=== PATIENT | female | born 1965 | race Caucasian/White ===

== ENCOUNTER 2020-07-30 12:17 | Outpatient (REF) | payer OTHER, SELFPAY ==
--- NOTE | 2020-07-30 | MM_ITS ---
EXAMINATION: BONE DENSITOMETRY CLINICAL INDICATION: Other specified disorders of bone density and structure. COMPARISON: This is the patient's baseline examination. TECHNIQUE: Using a Blued DXA System (software version: 13.1) manufactured by [employer], dual-energy x-ray absorptiometry was performed of the lumbar spine and left hip. The images are of good technical quality. Summary results are attached. FINDINGS: AP SPINE L1-L4: BMD 0.617 g/cm2, Z-score -4.3, T-score -4.7, osteoporosis. LEFT FEMUR, NECK: BMD 0.827 g/cm2, Z-score -0.8, T-score -1.5, osteopenia. LEFT FEMUR, TOTAL: BMD 0.839 g/cm2, Z-score -0.9, T-score -1.3, osteopenia. IDENTIFIED RISK FACTORS: Early menopause, secondary osteoporosis, hysterectomy, bilateral oophorectomy. HISTORY OF FRACTURE: None listed. MEDICATIONS: Calcium supplements or multivitamin, vitamin D. MM/XR DEXA axial skeleton IMPRESSION: 1. DIAGNOSIS: Osteoporosis based on the lowest T-score value of -4.7 in the lumbar spine applying World Health Organization criteria. 2. 10-YEAR FRACTURE RISK PREDICTION, FRAX: Major osteoporotic fracture (clinical spine, forearm, hip or shoulder) 3.1%. Hip fracture 0.2%. 3. Treatment Recommendations: NOF guidelines recommend consideration for treatment in postmenopausal women and men age 50 and older presenting with the following: -A hip or vertebral (clinical or morphometric) fracture. -T-score less than or equal to -2.5 at the femoral neck or spine after appropriate evaluation to exclude secondary causes. -Low bone mass at the hip or spine and a 10-year fracture probability by FRAX of greater than or equal to 3% for hip fracture or greater than or equal to 20% for major osteoporotic fracture based on the [place] adapted WHO algorithm. 4. Other Recommendations: All treatment decisions require clinical judgment and consideration of individual patient factors, including patient preferences, comorbidities, previous drug use, risk factors not captured in the FRAX model (e.g. frailty, falls, vitamin D deficiency, increased bone turnover, interval significant decline in bone density) and possible under or overestimation of fracture risk by FRAX. Additional medical evaluation for secondary cause of low bone mineral density may be appropriate. FUTURE SCAN RECOMMENDATION: People with diagnosed cases of osteoporosis or at high risk for fracture should have regular bone mineral density tests. For patients eligible for Medicare, routine testing is allowed once every 2 years. The testing frequency can be increased to one year for patients who have rapidly progressing disease, those who are receiving or discontinuing medical therapy to restore bone mass, or have additional risk factors.
--- NOTE | 2020-07-30 | MM_ITS ---
EXAMINATION: MM SCREENING DIGITAL BREAST TOMOSYNTHESIS, BILATERAL CLINICAL INFORMATION: Screening. Asymptomatic. The lifetime risk of breast cancer based on the Tyrer-Cuzick Model is 8%. COMPARISON: Mammography: 06/20/2019 TECHNIQUE: Digital breast tomosynthesis is performed in both the craniocaudal and mediolateral oblique views along with computer-aided detection (CAD). Synthesized 2D images are generated from the tomosynthesis. FINDINGS: The breasts are heterogeneously dense, which may obscure small masses (ACR BI-RADS breast composition Category c). There are no significant masses, abnormal calcifications, or other abnormalities. Parenchymal pattern is similar to prior exam. The axilla and skin contours are unremarkable. MM/MM tomosynthesis screening BI IMPRESSION: There are no significant changes from prior study. ASSESSMENT: BI-RADS 1: Negative RECOMMENDATION: Routine annual mammography screening. This patient's information was entered into a reminder system with a target due date for their next mammogram.
== END 2020-07-30 12:18 | disposition home or self-care (01) ==
LOC: HO.MAMMO 12:17
PROVIDERS: Visit Provider Internal Medicine
DX: M85.80 Other specified disorders of bone density and structure, unspecified site (principal); Z12.39 Encounter for other screening for malignant neoplasm of breast
CPT/HCPCS: 77063; 77067; 77080

== ENCOUNTER 2020-08-27 09:31 | Day surgery (SDC) | payer OTHER, SELFPAY ==
[2020-08-21 20:21] VITALS: BMI 26.9
--- NOTE | 2020-08-24 08:53 | HO.ANESPROP2 ---
Documented by User: Letty Espinoza 08/24/20 08:54 HPI - Anesthesia Eval Consult details Narrative: 54yo F for Colonoscopy [facility] Past Medical History Medical History Age related osteoporosis Constipation Hypercholesteremia Irritable bladder Lumbar pain Numbness of left hand Other specified hypothyroidism Family History Family History Father Myocardial infarction Mother CVD (cardiovascular disease) Surgical History Surgical History History of appendectomy History of hysterectomy History of nasal surgery Hx of breast reduction, elective No pertinent past surgical history Social History Social History Smoking Status: Never smoker Use of substances other than those prescribed or required for medical reasons: No Advance Directives: No Advance Directives Information Provided: No Advance Directives on File: No Meds Allergies Allergy/AdvReac Type Severity Reaction Status Date / Time fluconazole [From DIFLUCAN] Allergy Severe ANGIOEDEMA Verified 08/06/20 09:57 acetaminophen [Fioricet] Allergy Unknown Unknown Verified 08/06/20 09:57 butalbital [Fioricet] Allergy Unknown Unknown Verified 08/06/20 09:57 caffeine [Fioricet] Allergy Unknown Unknown Verified 08/06/20 09:57 ciprofloxacin [Cipro] Allergy Unknown Unknown Verified 08/06/20 09:57 sulfamethoxazole Allergy Unknown Unknown Verified 08/06/20 09:57 Exam Exam Date and Time: August 24, 2020 0853 Height,Weight and Vital Signs: Height 5 ft 4 in Weight 71.214 kg Assessment and Plan Assessment Anesthesia Assessment: Chart Reviewed Documented by User: Marleny Smith 08/27/20 11:17 [facility] Past Medical History Medical History Age related osteoporosis Constipation Hypercholesteremia Irritable bladder Lumbar pain Numbness of left hand Other specified hypothyroidism Family History Family History Father Myocardial infarction Mother CVD (cardiovascular disease) Family history of problems with anesthesia: No Surgical History Surgical History History of appendectomy History of hysterectomy History of nasal surgery Hx of breast reduction, elective No pertinent past surgical history History of Problems with Anesthesia: No Social History Social History Smoking Status: Never smoker Use of substances other than those prescribed or required for medical reasons: No Advance Directives: No Advance Directives Information Provided: No Advance Directives on File: No Meds Allergies Allergy/AdvReac Type Severity Reaction Status Date / Time fluconazole [From DIFLUCAN] Allergy Severe ANGIOEDEMA Verified 08/06/20 09:57 acetaminophen [Fioricet] Allergy Unknown Unknown Verified 08/06/20 09:57 butalbital [Fioricet] Allergy Unknown Unknown Verified 08/06/20 09:57 caffeine [Fioricet] Allergy Unknown Unknown Verified 08/06/20 09:57 ciprofloxacin [Cipro] Allergy Unknown Unknown Verified 08/06/20 09:57 sulfamethoxazole Allergy Unknown Unknown Verified 08/06/20 09:57 Exam Height,Weight and Vital Signs: Vital Signs Temp Pulse Resp BP Pulse Ox 08/27/20 10:45 97.7 F 87 16 143/90 H 96 Airway Mallampati Class: II TM Dist: >3cm Neck ROM: Full Partial: Lower Heart: RRR Lungs: CTAB Assessment and Plan Assessment Anesthesia Assessment: Anesthesia Plan Discussed and Chart Reviewed Final Anesthetic Review NPO: Yes ASA Class: II Final Preanesthetic Review: No Changes in Pt Med Stat, Meds/Allgs Chart Reviewed, Consent Obtained/Reviewed and Anes Risks/Benef Reviewed Patient Risk: Low Procedure Risk: Low Anesthetic Plan Anesthetic Plan: MAC: Disposition: Standard PACU
[2020-08-27 10:45] VITALS: BP 143/90; PULSE 87; RESP 16; TEMP 36.5; O2SAT 96
[2020-08-27] MEDS: Lactated Ringers 1,000 ML 100 ML IVCONT (11:01)
--- NOTE | 2020-08-27 11:20 | P.HPSUR_ITS ---
Pre-Procedural Eval Section A The patient is an INPATIENT: No The History & Physical has been completed within 30 days and I have reviewed it.: No Section B Chief Complaint: SCREENING Details of Present Illness: This is her first colonoscopy. She suffers constpation for many years. She was taking magnesium tablets, she is now drinking a tea that is likely senna based and eats a lot of fiber. She is happy with this. She denies any upper GI problems. She does suffer a great deal of gas bloating and trapping. I suggest simethicone. There is no prior problem with anesthesia or sedation. She denies any cardiac or respiratory problems. Her father may have a colon cancer, this is currently being investigated in his older years at age 76. Relevant Family History (Specify if Yes): Yes Relevant Social History: None Present Medications: see Cornlea Stay [facility] assessment Medical History: Significant History (High cholesterol) History of Previous Operations: Relevant previous surgery/procedure and date(s) (hysterectomy, breast reduction ) Allergies: Allergies Allergy/AdvReac Type Severity Reaction Status Date / Time fluconazole [From DIFLUCAN] Allergy Severe ANGIOEDEMA Verified 08/06/20 09:57 acetaminophen [Fioricet] Allergy Unknown Unknown Verified 08/06/20 09:57 butalbital [Fioricet] Allergy Unknown Unknown Verified 08/06/20 09:57 caffeine [Fioricet] Allergy Unknown Unknown Verified 08/06/20 09:57 ciprofloxacin [Cipro] Allergy Unknown Unknown Verified 08/06/20 09:57 sulfamethoxazole Allergy Unknown Unknown Verified 08/06/20 09:57 Review of Systems Sugical H&P ROS: Negative: Constitution, Cardiovascular, Respiratory and Gastrointestinal Exam Surgical H&P Exam: Normal: Heart, Normal: Lungs, Normal: Extremities and Normal: Abdomen Plan Diagnosis/Plan: Unchanged Patient has been examined and remains a candidate for the planned procedure
--- NOTE | 2020-08-27 11:20 | W.PM.OPN ---
Operative Note Operative Note Date of Service: 08/27/20 Narrative: Pre-op diagnosis: Colon cancer screening, chronic constipation, abdominal bloating Post-op diagnosis: other (cecal nodule, diverticulosis, hemorrhoids) Procedure: COLONOSCOPY TILL CECUM WITH BIOPSIES Consent: Indications for the procedure and potential complications of bleeding, perforation, reaction to medications and missed diagnosis were discussed with the patient and informed consent was obtained. Instrument: Olympus PCF H 190 L variable stiffness pediatric colonoscope Monitoring: Vital signs and clinical assessment, intermittent blood pressure monitoring, continuous EKG monitoring, Pulse oximetry and Carbon Dioxide monitoring were done throughout the procedure. Colon withdrawl time was 11 minutes. Procedure: The patient was placed in the left lateral decubitis position and pre-procedure medications were administered. After a digital rectal examination of the ano-rectum, the video colonoscope was inserted into the rectum and advanced through the colon to the cecum. The colonoscope was slowly withdrawn in a retrograde panoramic fashion and the colon mucosa was carefully examined including a retroflexed view of the rectum. Findings and interventions are described below. Procedure Difficulty: Without difficulty Findings: Terminal Ileum: Not evaluated Cecum: A 2 cms elongated benign appearing nodule at appendicular orifice with normal overlying mucosa - biopsies obtained. Ascending Colon: Patchy erythem - random biopsies were obtained Transverse Colon: Normal Descending Colon: Normal Sigmoid Colon: Moderate diverticulosis Rectum: Normal Ano-rectum: Moderate inflammed internal hemorrhoids and hypertrophied anal papillae Colon preparation: Excellent Impression and Post Procedure Diagnosis: Colonoscopy Findings: No polyps were detected. A 2 cms elongated benign appearing nodule at appendicular orifice with normal overlying mucosa (likely inverted appendicular stump) - biopsies obtained. Moderate diverticulosis seen in the sigmoid colon Moderate hemorrhoids on retroflexed exam. Plan: Await pathology results Patient has an appointment on 09/10/20 in the GI Clinic with Nydia Tuttle NP . Repeat Colonoscopy interval based on path results - in 5 years if colon biopsies are normal and due to positive FH of colon cancer. Above findings were reviewed with the patient and diverticulosis and hemorrhoids handouts were given in the discharge area Surgeon: Radha Carlson MD Anesthesia: MAC (Dr Smith) Estimated blood loss (mL): 0 Pathology: other (A. cecal nodule, B. random colon biopsies) Condition: stable Disposition: PACU
[2020-08-27 12:00] VITALS: BP 111/73; PULSE 88; RESP 16; TEMP 36.6; O2SAT 99
[2020-08-27 12:15] VITALS: BP 127/86; PULSE 76; RESP 18; O2SAT 99
--- NOTE | 2020-08-27 12:33 | HO.POSTANES ---
Post Anesthesia Evaluation Post Anesthesia Evaluation Vital Signs: Vital Signs Temp Pulse Resp BP Pulse Ox 08/27/20 12:15 76 18 127/86 99 08/27/20 12:00 97.8 F 88 16 111/73 99 08/27/20 10:45 97.7 F 87 16 143/90 H 96 Anesthesia: Monitored Mental Status: Awake Pain Control: Satisfactory Nausea/Vomiting: None Hydration: Adequate Anesthesia-Related Issues: No Anes. Related Issues
== END 2020-08-27 12:52 | disposition home or self-care (01) ==
PROVIDERS: PCP Internal Medicine; Visit Provider Internal Medicine Gastroenterology
PROC: 0DJD8ZZ Inspection of Lower Intestinal Tract, Via Natural or Artificial Opening Endoscopic (ICD-10-PCS; CPT 45378; principal; 2020-08-27 10:40)
DX: Z12.11 Encounter for screening for malignant neoplasm of colon (principal); K52.832 Lymphocytic colitis; K57.30 Diverticulosis of large intestine without perforation or abscess without bleeding; K64.8 Other hemorrhoids; K62.89 Other specified diseases of anus and rectum; Z88.8 Allergy status to other drugs, medicaments and biological substances
CPT/HCPCS: 45380; 88305

== ENCOUNTER → 2020-09-10 10:07 | Outpatient (BNVA) | payer OTHER, SELFPAY | PROVIDERS: PCP Internal Medicine; Visit Provider Nurse Practitioner | DX: Z76.89 Persons encountering health services in other specified circumstances (principal) ==

== ENCOUNTER → 2020-10-15 10:31 | Outpatient (BNVA) | payer OTHER, SELFPAY | PROVIDERS: PCP Internal Medicine; Visit Provider Internal Medicine ==

== ENCOUNTER 2020-10-29 11:14 | Outpatient (REF) | payer OTHER, SELFPAY ==
[2020-10-29 14:28] LABS: Albumin Level 4.5 g/dL (3.5-5.0); Calcium 9.8 mg/dL (8.4-10.2); Phosphorus 3.8 mg/dL (2.7-4.5)
[2020-10-29 14:47] LABS: Free T4 (Free Thyroxine) 1.11 ng/dL (0.71-1.85); Thyroid Stimulating Hormone 1.76 uIU/mL (0.32-4.0); Vitamin D 25-OH Total 45.9 ng/mL (>30)
[2020-10-30 09:53] LABS: Calcium (PTHI) 9.8 mg/dL (8.6-10.4); PTHI 61 pg/mL (14-64)
[2020-10-30 17:48] LABS: Calcium, Ionized 5.2 mg/dL (4.8-5.6)
[2020-11-01 11:12] LABS: Prot Elec - Albumin 4.3 g/dL (3.8-4.8); Prot Elec - Alpha1 0.3 g/dL (0.2-0.3); Prot Elec - Alpha2 0.8 g/dL (0.5-0.9); Prot Elec - Beta 1 0.5 g/dL (0.4-0.6); Prot Elec - Beta 2 0.4 g/dL (0.2-0.5); Prot Elec - Gamma 1.2 g/dL (0.8-1.7); Prot Elec - Total Protein 7.4 g/dL (6.1-8.1)
[2020-11-01 15:36] LABS: Alkaline Phosphatase Bone 19.1 mcg/L (5.6-29.0)
== END 2020-10-29 11:15 | disposition home or self-care (01) ==
LOC: HO.HMGCLDS 11:14
PROVIDERS: PCP Internal Medicine; Visit Provider Internal Medicine
DX: M81.0 Age-related osteoporosis without current pathological fracture (principal); E55.9 Vitamin D deficiency, unspecified
CPT/HCPCS: 36415; 82040; 82306; 82310; 82330; 83970; 84075; 84100; 84155; 84165; 84439; 84443

== ENCOUNTER 2020-12-11 | Outpatient (REF) | payer OTHER, SELFPAY ==
[2020-12-11 12:55] LABS: Creatinine, mg/dL 59.89
[2020-12-11 14:23] LABS: Creatinine, 24Hr Urine 1.2 G/Day (1.0-2.0); Total Volume 24 Hour Urine 1975 mL
[2020-12-15 21:36] LABS: Calcium, 24 Hr Urine 318 mg/24 h; Calcium/Creatinine Ratio 252 mg/g creat (30-275); Creatinine 24Hr Urine 1.26 g/24 h (0.50-2.15)
== END 2020-12-11 00:01 | disposition home or self-care (01) ==
LOC: HO.HMGCLNP
PROVIDERS: Visit Provider Internal Medicine
DX: M81.0 Age-related osteoporosis without current pathological fracture (principal)
CPT/HCPCS: 82340; 82570

== ENCOUNTER → 2020-12-31 09:24 | Outpatient (BNVA) | payer OTHER, SELFPAY | PROVIDERS: PCP Internal Medicine; Visit Provider Internal Medicine ==

== ENCOUNTER 2021-02-19 10:33 | Outpatient (REF) | payer OTHER, SELFPAY ==
[2021-02-19 14:48] LABS: Alanine Aminotransferase 24 U/L (0-31); Albumin Level 4.4 g/dL (3.5-5.0); Alkaline Phosphatase 91 U/L (39-117); Anion Gap 14 (12-20); Aspartate Amino Transferase 21 U/L (5-31); Bilirubin Total 0.4 mg/dL (0.0-1.0); Blood Urea Nitrogen 11 mg/dL (9-16); Calcium 9.7 mg/dL (8.4-10.2); Carbon Dioxide 27 mmol/L (22-29); Chloride 105 mmol/L (96-108); Estimated Glomerular Filt Rate > 60; Glucose Random 92 mg/dL (60-115); Phosphorus 3.4 mg/dL (2.7-4.5); Potassium 3.7 mmol/L (3.3-5.1); Sodium 142 mmol/L (135-145); Total Protein 7.1 g/dL (6.5-8.0)
[2021-02-19 15:05] LABS: Vitamin D 25-OH Total 35.2 ng/mL (>30)
[2021-02-19 15:10] LABS: TSH reflex Free T4 1.29 uIU/mL (0.32-4.0)
[2021-02-21 09:21] LABS: Calcium (PTHI) 9.8 mg/dL (8.6-10.4); PTHI 43 pg/mL (14-64)
[2021-02-27 06:21] LABS: N-Telopeptide 66 (see note); NTXCreaRU 163 mg/dL (20-275)
== END 2021-02-19 10:34 | disposition home or self-care (01) ==
LOC: HO.HMGCLDS 10:33
PROVIDERS: PCP Internal Medicine; Visit Provider Internal Medicine
DX: E03.8 Other specified hypothyroidism (principal); N32.9 Bladder disorder, unspecified; E78.9 Disorder of lipoprotein metabolism, unspecified; M81.0 Age-related osteoporosis without current pathological fracture; E55.9 Vitamin D deficiency, unspecified; Z91.09 Other allergy status, other than to drugs and biological substances
CPT/HCPCS: 36415; 80053; 82306; 82523; 83970; 84100; 84443

== ENCOUNTER → 2021-02-25 10:31 | Outpatient (BNVA) | payer OTHER, SELFPAY | PROVIDERS: PCP Internal Medicine; Visit Provider Internal Medicine ==

== ENCOUNTER 2021-04-29 15:09 | Outpatient (REF) | payer OTHER, SELFPAY ==
[2021-04-29 17:34] LABS: Creatinine, mg/dL 90.49
[2021-04-29 22:06] LABS: Creatinine, 24Hr Urine 0.9 G/Day (1.0-2.0); Total Volume 24 Hour Urine 1000 mL
[2021-05-01 16:17] LABS: Calcium, 24 Hr Urine 166 mg/24 h; Calcium/Creatinine Ratio 177 mg/g creat (30-275); Creatinine 24Hr Urine 0.94 g/24 h (0.50-2.15)
== END 2021-04-29 15:10 | disposition home or self-care (01) ==
LOC: HO.HMGCLNP 15:09
PROVIDERS: Visit Provider Internal Medicine
DX: M81.0 Age-related osteoporosis without current pathological fracture (principal)
CPT/HCPCS: 82340; 82570

== ENCOUNTER → 2021-05-15 09:32 | Outpatient (BNVA) | payer OTHER, SELFPAY | PROVIDERS: Visit Provider Internal Medicine ==

== ENCOUNTER 2021-09-04 09:24 | Outpatient (REF) | payer OTHER, SELFPAY ==
[2021-09-04 11:30] LABS: MANUAL DIFF FLAG NO
[2021-09-04 11:37] LABS: Appearance Urine CLEAR; Color Urine YELLOW; Glucose Urine UA NEG (NEG); Leukocyte Esterase Urine NEG (NEG); Nitrite Urine NEG (NEG); Specific Gravity - Urine 1.025 (1.005-1.025); UACC Culture Trigger NO; Urine Blood TRACE (NEG); Urine Ketones NEG (NEG); Urine Protein NEG (NEG-TRACE)
[2021-09-04 11:44] LABS: Basophils Percent Auto 0.6 % (0-2); Eosinophils Absolute Auto 0.1 X10*3/uL (0.0-0.4); Eosinophils Percent Auto 1.2 % (0-4); Hematocrit 39.8 % (37.0-47.0); Hemoglobin 13.1 g/dl (12.0-16.0); Imm Gran Abs Auto 0.02 X10*3/uL (0.00-0.03); Imm Gran Pct Auto 0.3 % (0.0-0.4); Lymphocytes Absolute Auto 2.2 X10*3/uL (1.2-4.9); Lymphocytes Percent Auto 32.2 % (20-40); Mean Corpuscular HGB Conc 32.9 g/dl (31.0-35.0); Mean Corpuscular Hemoglobin 29.8 pg (27.0-33.0); Mean Corpuscular Volume 90.5 fL (80.0-98.0); Mean Platelet Volume 10.7 fL (9.4-12.3); Monocytes Absolute Auto 0.4 X10*3/uL (0.1-1.2); Monocytes Percent Auto 5.6 % (2-11); Neutrophils Absolute Auto 4.1 x10*3/uL (2.0-8.3); Neutrophils Percent Auto 60.1 % (45-73); Platelet Count 307 X10*3/uL (160-400); Red Cell Distribution Width 13.4 % (11.0-16.0); White Blood Count 6.8 X10*3/uL (4.8-10.8)
[2021-09-04 12:09] LABS: Renal Epithelial Cells Urine 1+ /LPF; Squamous Epithelial Cell Urine TRACE /LPF
[2021-09-04 12:10] LABS: RBC Urine 0-2 /HPF (0); WBC Urine 0-2 /HPF (0-4)
[2021-09-04 12:11] LABS: Mucus Urine TRACE /LPF
[2021-09-04 12:15] LABS: Alanine Aminotransferase 15 U/L (0-31); Albumin Level 4.4 g/dL (3.5-5.0); Alkaline Phosphatase 75 U/L (39-117); Anion Gap 12 (12-20); Aspartate Amino Transferase 16 U/L (5-31); Bilirubin Total 0.5 mg/dL (0.0-1.0); Blood Urea Nitrogen 21 mg/dL (9-16); Calcium 9.8 mg/dL (8.4-10.2); Carbon Dioxide 26 mmol/L (22-29); Chloride 106 mmol/L (96-108); Cholesterol 259 mg/dL; Estimated Glomerular Filt Rate > 60; Glucose Fasting 90 mg/dL (60-99); HDL Cholesterol 63 mg/dL; LDL Cholesterol Calculated 173 mg/dl; Sodium 140 mmol/L (135-145); Total Protein 7.2 g/dL (6.5-8.0); Triglycerides 115 mg/dL
[2021-09-04 12:22] LABS: TSH reflex Free T4 0.96 uIU/mL (0.32-4.0)
== END 2021-09-04 09:25 | disposition home or self-care (01) ==
LOC: HO.HMGCLDS 09:24
PROVIDERS: PCP Internal Medicine; Visit Provider Internal Medicine
DX: Z00.01 Encounter for general adult medical examination with abnormal findings (principal); E03.8 Other specified hypothyroidism; E78.9 Disorder of lipoprotein metabolism, unspecified; F41.0 Panic disorder [episodic paroxysmal anxiety]; M81.0 Age-related osteoporosis without current pathological fracture; N32.9 Bladder disorder, unspecified; Z91.09 Other allergy status, other than to drugs and biological substances
CPT/HCPCS: 36415; 80053; 80061; 81001; 84443; 85025

== ENCOUNTER 2021-10-09 09:55 | Outpatient (REF) | payer OTHER, SELFPAY ==
--- NOTE | ~2021-10-09 | MM_ITS ---
EXAMINATION: MM SCREENING DIGITAL BREAST TOMOSYNTHESIS, BILATERAL CLINICAL INFORMATION: Screening. Asymptomatic. The lifetime risk of breast cancer based on the Tyrer-Cuzick Model is 5%. COMPARISON: Mammography: 07/30/2020, 06/20/2019 TECHNIQUE: Digital breast tomosynthesis is performed in both the craniocaudal and mediolateral oblique views along with computer-aided detection (CAD). Synthesized 2D images are generated from the tomosynthesis. FINDINGS: The breasts are heterogeneously dense, which may obscure small masses (ACR BI-RADS breast composition Category c). There are no significant masses, abnormal calcifications, or other abnormalities. There is fine fibronodular pattern with scattered stable asymmetries. No significant changes. No developing density. MM/MM tomosynthesis screening BI IMPRESSION: No mammographic evidence of malignancy. ASSESSMENT: BI-RADS 2: Benign RECOMMENDATION: Routine annual mammography screening. This patient's information was entered into a reminder system with a target due date for their next mammogram.
== END 2021-10-09 09:56 | disposition home or self-care (01) ==
LOC: HO.MAMMO 09:55
PROVIDERS: Visit Provider Internal Medicine
DX: Z12.31 Encounter for screening mammogram for malignant neoplasm of breast (principal)
CPT/HCPCS: 77063; 77067

== ENCOUNTER 2021-10-17 13:22 | Outpatient (REF) | payer OTHER, SELFPAY ==
--- NOTE | 2021-10-17 15:39 | MHC.AU.ANR ---
Adult Audiological Evaluation Date of Visit: 10/17/21 911 Emergency Services Dispatcher Used: [place]- By Phone Reason for Appointment: Audiological evaluation due to concern for decreased hearing. Patient notes that she has had hearing difficulties for many years, which she feels fluctuates. She notes difficulties hearing the TV and when people speak in a whisper. She notes that she previously had her hearing tested ~20+ year ago at an ENT office and was told and she had hearing loss, but hasn't followed up since that time. Does patient feel they have a hearing loss?: Yes If Yes, Which Ear?: Both Ears When Was Hearing Difficulty First Noticed?: Many years ago Hearing Handicap Inventory: HHIE SCORE: 10 Based on HHIE score, patient has: Mild to moderate perceived hearing handicap Ear History: Bothersome Tinnitus/Ringing/Noises in Ears: Both Ears History of occupational noise exposure?: Andrea, 9 years Medical History: Medical History: Thyroid Disease Medical History (Other): Breast reduction, hysterectmy, ilan bullosa (pneumatized cavity), appendicitis Allergies: diflucan, cipro Medication List: Escitalopram, Levothyroxine, simvastatin, Zyrtec, loratadine Otoscopy: Right Ear: Unremarkable Left Ear: Unremarkable Tympanometry: Tympanometry performed due to: Conductive component found in audiometric results Right Ear: Could not maintain seal while performing tympanometry. Would begin to run, get correction through the tracing (appeared it was going to by hypercompliant), and then lose seal. Left Ear: Hypercompliant Middle Ear System (Type Ad) Hearing Evaluation: Transducer(s) Used: Insert Earphones, Bone Conduction Method: Conventional Audiometry Stimuli Used: Pure Tones Right Ear: Description of Hearing: Normal hearing 250-500 Hz, sloping to a mild conductive hearing loss from 5448-0114 Hz, a mid sensorineural hearing loss from 0477-3297 Hz, a moderate hearing loss at 6000 Hz, and a moderately-severe hearing loss at 8000 Hz. Left Ear: Description of Hearing: Normal hearing from 250-2000 Hz, sloping to a mild sensorineural hearing loss 0837-7321 Hz. Speech Recognition Threshold (SRT): Method Used: Not performed at today's visit due to time constraints (patient arrived late for appointment). Word Discrimination: Method Used: Not performed at today's visit due to time constraints (patient arrived late for appointment). Recommendations: Audiological re-evaluation in one year. Referral to Ear, Nose, and Throat is recommended due to conductive hearing loss in the right ear and asymmetric hearing. Diagnosis: Primary Diagnosis: H90.3 Bilateral Sensorineural Hearing Loss Secondary Diagnosis: H69.93 Unspecified Eustachian Tube Dysfunction, Bilateral Services Performed: Services Performed: Pure Tone- Air & Bone (CPT 72919) Tympanometry (CPT 85245) Signature: Provider: Trang Mosley, CCC-A
== END 2021-10-17 13:23 | disposition home or self-care (01) ==
LOC: HO.SH 13:22
PROVIDERS: Visit Provider Internal Medicine
DX: Z01.118 Encounter for examination of ears and hearing with other abnormal findings (principal); H90.3 Sensorineural hearing loss, bilateral; H69.93 Unspecified Eustachian tube disorder, bilateral
CPT/HCPCS: 92553; 92567

== ENCOUNTER → 2021-10-28 09:04 | Outpatient (BNVA) | payer OTHER, SELFPAY | PROVIDERS: PCP Internal Medicine | DX: R35.0 Frequency of micturition (principal) | CPT/HCPCS: 51798; 99202 ==

== ENCOUNTER 2021-11-14 10:57 | Outpatient (REF) | payer OTHER, SELFPAY ==
[2021-11-14 14:04] LABS: Appearance Urine CLEAR; Color Urine YELLOW; Glucose Urine UA NEG (NEG); Leukocyte Esterase Urine NEG (NEG); Nitrite Urine NEG (NEG); PH 5.5 (5.0-8.0); Specific Gravity - Urine 1.025 (1.005-1.025); UACC Culture Trigger NO; Urine Blood 2+ (NEG); Urine Ketones NEG (NEG); Urine Protein NEG (NEG-TRACE)
[2021-11-14 14:08] LABS: Alanine Aminotransferase 21 U/L (0-31); Albumin Level 4.4 g/dL (3.5-5.0); Alkaline Phosphatase 90 U/L (39-117); Anion Gap 13 (12-20); Aspartate Amino Transferase 21 U/L (5-31); Bilirubin Direct 0.2 mg/dL (0.0-0.5); Bilirubin Total 0.6 mg/dL (0.0-1.0); Blood Urea Nitrogen 12 mg/dL (9-16); Calcium 9.7 mg/dL (8.4-10.2); Carbon Dioxide 25 mmol/L (22-29); Chloride 107 mmol/L (96-108); Cholesterol 190 mg/dL; Estimated Glomerular Filt Rate > 60; Glucose Random 91 mg/dL (60-115); HDL Cholesterol 63 mg/dL; LDL Cholesterol Calculated 108 mg/dl; Phosphorus 3.7 mg/dL (2.7-4.5); Potassium 4.1 mmol/L (3.3-5.1); Sodium 141 mmol/L (135-145); Total Protein 7.2 g/dL (6.5-8.0); Triglycerides 99 mg/dL
[2021-11-14 14:10] LABS: TSH reflex Free T4 2.13 uIU/mL (0.32-4.0)
[2021-11-14 14:19] LABS: WBC Urine 0 /HPF (0-4)
[2021-11-14 14:20] LABS: Mucus Urine 2+ /LPF; Squamous Epithelial Cell Urine 2+ /LPF
[2021-11-15 17:16] LABS: Calcium (PTHI) 9.6 mg/dL (8.6-10.4); PTHI 75 pg/mL (14-64)
== END 2021-11-14 10:58 | disposition home or self-care (01) ==
LOC: HO.HMGCLDS 10:57
PROVIDERS: PCP Internal Medicine; Visit Provider Internal Medicine
DX: E03.8 Other specified hypothyroidism (principal); M81.0 Age-related osteoporosis without current pathological fracture; E78.9 Disorder of lipoprotein metabolism, unspecified; E55.9 Vitamin D deficiency, unspecified
CPT/HCPCS: 36415; 80053; 80061; 80076; 81001; 81003; 82248; 82306; 83970; 84100; 84443

== ENCOUNTER → 2021-11-18 11:27 | Outpatient (BNVA) | payer OTHER, SELFPAY | PROVIDERS: Visit Provider Internal Medicine ==

== ENCOUNTER 2021-12-19 12:52 | Outpatient (REF) | payer OTHER, SELFPAY ==
--- NOTE | ~2021-12-19 | US_ITS ---
EXAMINATION: US THYROID CLINICAL INFORMATION: Hyperparathyroidism, unspecified. COMPARISON: None TECHNIQUE: Linear transducer grayscale and color Doppler examination with attention to the region of the thyroid. FINDINGS: SIZE: Measurements of the thyroid lobes and nodules are given in sagittal, anteroposterior and transverse dimensions respectively. Right Thyroid Lobe: 4.12 x 1.87 x 1.41 cm, volume 5.70 mL. Parenchyma: The gland echotexture is heterogeneous. Thyroid vascularity is increased. Left Thyroid Lobe: 4.32 x 1.35 x 1.44 cm, volume 4.41 mL. Parenchyma: The gland echotexture is heterogeneous. Thyroid vascularity is increased. Isthmus: 0.41 cm in maximum AP dimension. No focal thyroid nodule is seen. NODES: No lymphadenopathy is seen in the tissue surrounding the thyroid gland. ADDITIONAL FINDINGS: Posterior to the right thyroid lobe lower pole, a 1.1 x 0.5 x 0.5 cm hypoechoic nodule seen. Posterior to the left thyroid lobe lower pole, a 0.8 x 0.3 x 0.4 cm hypoechoic nodule is seen. US/US thyroid IMPRESSION: 1. Unremarkable thyroid ultrasound examination. 2. Bilateral parathyroid adenomas are questioned. If clinically indicated, this can be correlated clinically with serum parathormone and calcium levels. ACR TI-RADS RECOMMENDATION REFERENCE: Ultrasound-guided fine-needle aspiration, followup ultrasound, no further follow up. * TR1 (0 point) and TR 2 (2 points): No FNA or follow up * TR3 (3 points): FNA if more than or equal to 2.5 cm in maximum dimension, followup ultrasound in 1, 3 and 5 years if 1.5 to 2.4 cm in maximum dimension. * TR4 (4-6 points): FNA if more than or equal to 1.5 cm in maximum dimension, followup ultrasound in 1, 2, 3 and 5 years if 1 to 1.4 cm in maximum dimension. * TR5 (more than or equal to 7 points): FNA if more than or equal to 1 cm in maximum dimension, followup ultrasound every year for 5 years if 0.5 to 0.9 cm in maximum dimension. * TR3, TR4 or TR5 nodules that are below the size threshold for follow up receive no follow up.
== END 2021-12-19 12:53 | disposition home or self-care (01) ==
LOC: HO.HMGCX 12:52
PROVIDERS: Visit Provider Internal Medicine
DX: E21.3 Hyperparathyroidism, unspecified (principal)
CPT/HCPCS: 76536

== ENCOUNTER 2022-01-21 09:35 | Outpatient (REF) | payer OTHER, SELFPAY ==
[2022-01-21 12:01] LABS: Alanine Aminotransferase 17 U/L (0-31); Albumin Level 4.4 g/dL (3.5-5.0); Alkaline Phosphatase 86 U/L (39-117); Anion Gap 12 (12-20); Aspartate Amino Transferase 17 U/L (5-31); Bilirubin Total 0.6 mg/dL (0.0-1.0); Blood Urea Nitrogen 14 mg/dL (9-16); Calcium 9.9 mg/dL (8.4-10.2); Carbon Dioxide 26 mmol/L (22-29); Chloride 106 mmol/L (96-108); Estimated Glomerular Filt Rate > 60; Glucose Random 93 mg/dL (60-115); Phosphorus 3.4 mg/dL (2.7-4.5); Potassium 4.1 mmol/L (3.3-5.1); Sodium 140 mmol/L (135-145); Total Protein 7.4 g/dL (6.5-8.0)
[2022-01-21 12:10] LABS: Vitamin D 25-OH Total 36.6 ng/mL (>30)
[2022-01-22 14:11] LABS: Calcium (PTHI) 9.5 mg/dL (8.6-10.4); PTHI 64 pg/mL (16-77)
== END 2022-01-21 09:36 | disposition home or self-care (01) ==
LOC: HO.HMGCLDS 09:35
PROVIDERS: PCP Internal Medicine; Visit Provider Internal Medicine
DX: E21.3 Hyperparathyroidism, unspecified (principal); E55.9 Vitamin D deficiency, unspecified
CPT/HCPCS: 36415; 80053; 82306; 83970; 84100

== ENCOUNTER → 2022-01-22 08:13 | Outpatient (BNVA) | payer OTHER, SELFPAY | PROVIDERS: PCP Internal Medicine; Visit Provider Internal Medicine | DX: Z13.89 Encounter for screening for other disorder (principal) ==

== ENCOUNTER 2022-01-31 09:10 | Outpatient (REF) | payer OTHER, SELFPAY ==
[2022-01-31 11:31] LABS: Total Volume 24 Hour Urine 1600 mL
[2022-01-31 11:58] LABS: Creatinine, 24Hr Urine 1.1 G/Day (1.0-2.0); Creatinine, mg/dL 70.78
[2022-02-01 16:40] LABS: Calcium, 24 Hr Urine 120 mg/24 h; Calcium/Creatinine Ratio 103 mg/g creat (30-275); Creatinine 24Hr Urine 1.17 g/24 h (0.50-2.15)
== END 2022-01-31 09:11 | disposition home or self-care (01) ==
LOC: HO.HMGCLNP 09:10
PROVIDERS: PCP Internal Medicine; Visit Provider Internal Medicine
DX: M81.0 Age-related osteoporosis without current pathological fracture (principal)
CPT/HCPCS: 82340; 82570

== ENCOUNTER 2022-05-08 10:02 | Outpatient (REF) | payer OTHER, SELFPAY ==
[2022-05-08 11:56] LABS: Alanine Aminotransferase 21 U/L (0-31); Albumin Level 4.4 g/dL (3.5-5.0); Alkaline Phosphatase 74 U/L (39-117); Anion Gap 15 (12-20); Aspartate Amino Transferase 21 U/L (5-31); Bilirubin Total 0.4 mg/dL (0.0-1.0); Blood Urea Nitrogen 12 mg/dL (9-16); Calcium 9.2 mg/dL (8.4-10.2); Carbon Dioxide 23 mmol/L (22-29); Chloride 106 mmol/L (96-108); Cholesterol 263 mg/dL; Estimated Glomerular Filt Rate > 60; Glucose Fasting 96 mg/dL (60-99); HDL Cholesterol 56 mg/dL; LDL Cholesterol Calculated 184 mg/dl; Lactate Dehydrogenase 173 U/L (122-220); Magnesium 2.1 mg/dL (1.6-2.6); Sodium 140 mmol/L (135-145); Total Protein 7.2 g/dL (6.5-8.0); Triglycerides 115 mg/dL
== END 2022-05-08 10:03 | disposition home or self-care (01) ==
LOC: HO.HMGCLDS 10:02
PROVIDERS: PCP Internal Medicine; Visit Provider Internal Medicine
DX: E03.8 Other specified hypothyroidism (principal); F41.0 Panic disorder [episodic paroxysmal anxiety]; E78.9 Disorder of lipoprotein metabolism, unspecified; E55.9 Vitamin D deficiency, unspecified; M81.0 Age-related osteoporosis without current pathological fracture; Z91.09 Other allergy status, other than to drugs and biological substances
CPT/HCPCS: 36415; 80053; 80061; 82550; 83615; 83735; 84443

== ENCOUNTER 2022-07-08 15:42 | Outpatient (REF) | payer OTHER, SELFPAY ==
--- NOTE | ~2022-07-08 | XR_ITS ---
EXAMINATION: XR WRIST, RIGHT CLINICAL INFORMATION: Fall COMPARISON: None TECHNIQUE: PA, lateral, and oblique views of the right wrist. FINDINGS: No fracture or dislocation. Osteopenia. Joint spaces maintained. Mild soft tissue swelling of the wrist. XR/XR wrist RT min 3V IMPRESSION: Mild soft tissue swelling. No fracture or malalignment.
== END 2022-07-08 15:43 | disposition home or self-care (01) ==
LOC: HO.HMGCX 15:42
PROVIDERS: PCP Internal Medicine; Visit Provider Emergency Medicine
DX: Z91.81 History of falling (principal)
CPT/HCPCS: 73110

== ENCOUNTER 2022-09-27 09:29 | Outpatient (REF) | payer OTHER, SELFPAY ==
[2022-09-27 11:28] LABS: Alanine Aminotransferase 16 U/L (0-31); Albumin Level 4.8 g/dL (3.5-5.0); Alkaline Phosphatase 52 U/L (39-117); Anion Gap 14 (12-20); Aspartate Amino Transferase 18 U/L (5-31); Bilirubin Total 0.6 mg/dL (0.0-1.0); Blood Urea Nitrogen 20 mg/dL (9-16); Calcium 9.9 mg/dL (8.4-10.2); Carbon Dioxide 26 mmol/L (22-29); Chloride 106 mmol/L (96-108); Cholesterol 251 mg/dL; Estimated Glomerular Filt Rate > 60; Glucose Fasting 96 mg/dL (60-99); HDL Cholesterol 82 mg/dL; LDL Cholesterol Calculated 152 mg/dl; Phosphorus 3.2 mg/dL (2.7-4.5); Potassium 4.5 mmol/L (3.3-5.1); Sodium 141 mmol/L (135-145); Total Protein 7.5 g/dL (6.5-8.0); Triglycerides 89 mg/dL
[2022-09-27 11:48] LABS: Vitamin D 25-OH Total 36.8 ng/mL (>30)
[2022-09-27 11:49] LABS: TSH reflex Free T4 1.58 uIU/mL (0.32-4.0)
[2022-09-29 15:39] LABS: Calcium (PTHI) 9.6 mg/dL (8.6-10.4); PTHI 79 pg/mL (16-77)
== END 2022-09-27 09:30 | disposition home or self-care (01) ==
LOC: HO.HMGCLDS 09:29
PROVIDERS: Absent Provider Internal Medicine; PCP Internal Medicine; Visit Provider Internal Medicine
DX: E78.9 Disorder of lipoprotein metabolism, unspecified (principal); F33.9 Major depressive disorder, recurrent, unspecified; M81.0 Age-related osteoporosis without current pathological fracture; E55.9 Vitamin D deficiency, unspecified
CPT/HCPCS: 36415; 80053; 80061; 82306; 83970; 84100; 84443

== ENCOUNTER 2022-09-29 08:38 | Outpatient (REF) | payer OTHER, SELFPAY ==
[2022-10-10 00:48] LABS: N-Telopeptide 44 (see note); NTXCreaRU 59 mg/dL (20-275)
== END 2022-09-29 08:39 | disposition home or self-care (01) ==
LOC: HO.HMGCLDS 08:38
PROVIDERS: Visit Provider Internal Medicine
DX: M81.0 Age-related osteoporosis without current pathological fracture (principal)
CPT/HCPCS: 82523

== ENCOUNTER → 2022-09-30 09:15 | Outpatient (BNVA) | payer OTHER, SELFPAY | PROVIDERS: PCP Internal Medicine; Visit Provider Nurse Practitioner Family | DX: Z13.89 Encounter for screening for other disorder (principal) ==

== ENCOUNTER → 2022-10-09 12:17 | Outpatient (BNVA) | payer OTHER, SELFPAY | PROVIDERS: PCP Internal Medicine; Visit Provider Internal Medicine | DX: E21.3 Hyperparathyroidism, unspecified (principal); M81.0 Age-related osteoporosis without current pathological fracture; E78.00 Pure hypercholesterolemia, unspecified; E55.9 Vitamin D deficiency, unspecified; Z82.62 Family history of osteoporosis; Z90.710 Acquired absence of both cervix and uterus; Z79.83 Long term (current) use of bisphosphonates | CPT/HCPCS: 99212 ==

== ENCOUNTER 2022-10-16 09:52 | Outpatient (REF) | payer OTHER, SELFPAY ==
--- NOTE | ~2022-10-16 | MM_ITS ---
EXAMINATION: MM SCREENING DIGITAL BREAST TOMOSYNTHESIS, BILATERAL CLINICAL INFORMATION: Screening. Asymptomatic. Prior history reduction mammoplasty over 15 years ago. The lifetime risk of breast cancer based on the Tyrer-Cuzick Model is 8%. COMPARISON: Mammography: 10/09/2021, 07/30/2020 TECHNIQUE: Digital breast tomosynthesis is performed in both the craniocaudal and mediolateral oblique views along with computer-aided detection (CAD). Synthesized 2D images are generated from the tomosynthesis. FINDINGS: The breasts are heterogeneously dense, which may obscure small masses (ACR BI-RADS breast composition Category c). There is fibronodular parenchymal pattern with scattered parenchymal asymmetries. Neither breast shows abnormal calcifications. The axilla and skin contours are unremarkable. Left breast shows no developing density or interval mass or architectural abnormality. Right breast has some asymmetric densities upper breast on MLO view likely related to summation artifact or incompletely compressed glandular tissue. Patient will be recalled for additional imaging. MM/MM tomosynthesis screening BI IMPRESSION: Right: -Asymmetric densities mid upper right breast on MLO view, suspect summation artifact or incompletely compressed glandular tissue. Left: -No mammographic evidence of malignancy. ASSESSMENT: BI-RADS 0: Incomplete - Need Additional Imaging Evaluation RECOMMENDATION: 1. Additional views of the right breast (spot MLO, spot ML). 2. Targeted ultrasound if warranted after review of the additional views. 3. Radiology department staff will contact the patient for additional imaging. This patient's information was entered into a reminder system with a target due date for their next mammogram.
--- NOTE | ~2022-10-16 | MM_ITS ---
EXAMINATION: BONE DENSITOMETRY CLINICAL INDICATION: Hyperparathyroidism, unspecified. COMPARISON: Baseline BD dated 07/30/2024 of the lumbar spine and left hip. This is the baseline BD of the left forearm radius 33%. TECHNIQUE: Using a [employer] DXA System (software version: 13.1) manufactured by [employer], dual-energy x-ray absorptiometry was performed of the lumbar spine, left hip and left forearm radius 33%. The images are of good technical quality. Summary results are attached. FINDINGS: AP SPINE L1-L4: Current: BMD 0.679 g/cm2, Z-score -3.6, T-score -4.2, osteoporosis, 10.0% increase from baseline (<5% change is not significant). Baseline: BMD 0.617 g/cm2. LEFT FEMUR, NECK: Current: BMD 0.753 g/cm2, Z-score -1.2, T-score -2.0, osteopenia. Baseline: BMD 0.827 g/cm2. LEFT FEMUR, TOTAL: Current: BMD 0.770 g/cm2, Z-score -1.4, T-score -1.9, osteopenia, 8.2% decrease from baseline (<5% change is not significant). Baseline: BMD 0.839 g/cm2. LEFT FOREARM RADIUS 33%: BMD 0.602 g/cm2, Z-score -2.7, T-score -3.1, osteoporosis. Baseline: Not previously measured. IDENTIFIED RISK FACTORS: Osteoporosis. Hyperparathyroidism. Low calcium intake. Parental hip fracture. Secondary osteoporosis (early menopause, hypothyroidism). Hysterectomy. Right oophorectomy. HISTORY OF FRACTURE: Femur/hip. MEDICATIONS: Calcium supplement or multivitamin. Vitamin D. Bisphosphonates. MM/XR DEXA appendicular skeleton IMPRESSION: 1. DIAGNOSIS: Osteoporosis based on the lowest T-score value of -4.2 in the lumbar spine applying World Health Organization criteria. 2. 10-YEAR FRACTURE RISK PREDICTION, FRAX: According to the guidelines, FRAX calculation should only be performed on patients in the osteopenia bone density category. Therefore, FRAX was not performed on this patient.? 3. Treatment Recommendations: NOF guidelines recommend consideration for treatment in postmenopausal women and men age 50 and older presenting with the following: -A hip or vertebral (clinical or morphometric) fracture. -T-score less than or equal to -2.5 at the femoral neck or spine after appropriate evaluation to exclude secondary causes. -Low bone mass at the hip or spine and a 10-year fracture probability by FRAX of greater than or equal to 3% for hip fracture or greater than or equal to 20% for major osteoporotic fracture based on the [place] adapted WHO algorithm. 4. Other Recommendations: All treatment decisions require clinical judgment and consideration of individual patient factors, including patient preferences, comorbidities, previous drug use, risk factors not captured in the FRAX model (e.g. frailty, falls, vitamin D deficiency, increased bone turnover, interval significant decline in bone density) and possible under or overestimation of fracture risk by FRAX. Additional medical evaluation for secondary cause of low bone mineral density may be appropriate. FUTURE SCAN RECOMMENDATION: People with diagnosed cases of osteoporosis or at high risk for fracture should have regular bone mineral density tests. For patients eligible for Medicare, routine testing is allowed once every 2 years. The testing frequency can be increased to one year for patients who have rapidly progressing disease, those who are receiving or discontinuing medical therapy to restore bone mass, or have additional risk factors.
== END 2022-10-16 09:53 | disposition home or self-care (01) ==
LOC: HO.MAMMO 09:52
PROVIDERS: PCP Internal Medicine; Visit Provider Internal Medicine
DX: Z12.31 Encounter for screening mammogram for malignant neoplasm of breast (principal); Z13.820 Encounter for screening for osteoporosis; E21.3 Hyperparathyroidism, unspecified; Z78.0 Asymptomatic menopausal state
CPT/HCPCS: 77063; 77067; 77081

== ENCOUNTER 2022-10-20 | Outpatient (REF) | payer OTHER, SELFPAY ==
[2022-10-21 13:45] LABS: Total Volume 24 Hour Urine 1150 mL
[2022-10-21 13:56] LABS: Creatinine, 24Hr Urine 0.8 G/Day (1.0-2.0)
[2022-10-22 19:48] LABS: Calcium, 24 Hr Urine 136 mg/24 h; Calcium/Creatinine Ratio 164 mg/g creat (30-275); Creatinine 24Hr Urine 0.83 g/24 h (0.50-2.15)
== END 2022-10-20 00:01 | disposition home or self-care (01) ==
LOC: HO.LNP
PROVIDERS: Visit Provider Internal Medicine
DX: E21.3 Hyperparathyroidism, unspecified (principal)
CPT/HCPCS: 82340; 82570

== ENCOUNTER 2022-10-21 08:33 | Outpatient (REF) | payer OTHER, SELFPAY | END 2022-10-21 08:34 | disposition home or self-care (01) | LOC: HO.HMGCLDS 08:33 | PROVIDERS: PCP Internal Medicine; Visit Provider Internal Medicine | DX: Z13.89 Encounter for screening for other disorder (principal) ==

== ENCOUNTER 2022-10-23 09:27 | Outpatient (REF) | payer OTHER, SELFPAY ==
--- NOTE | ~2022-10-23 | US_ITS ---
EXAMINATION: US SOFT TISSUE OF THE NECK CLINICAL INFORMATION: Hyperparathyroidism, assess for parathyroid adenoma. COMPARISON: Ultrasound thyroid 12/19/2021. TECHNIQUE: Linear transducer grayscale and color Doppler examination of the parathyroid area. FINDINGS: Limited imaging through the neck reveals a hypoechoic scanlon shaped lesion anterior to the right thyroid gland measuring 0.70 x 0.31 x 0.38 cm likely a small parathyroid lesion. Imaging through the left parathyroid region reveals no evidence of mass. US/US soft tiss head and/or neck IMPRESSION: Likely small right parathyroid gland. If there is a clinical concern for parathyroid adenoma further evaluation with a parathyroid nuclear scan can be performed.
== END 2022-10-23 09:28 | disposition home or self-care (01) ==
LOC: HO.HMGCX 09:27
PROVIDERS: PCP Internal Medicine; Visit Provider Internal Medicine
DX: E21.3 Hyperparathyroidism, unspecified (principal)
CPT/HCPCS: 76536

== ENCOUNTER 2022-10-30 08:26 | Outpatient (REF) | payer OTHER, SELFPAY ==
--- NOTE | ~2022-10-30 | MM_ITS ---
EXAMINATION: MM DIAGNOSTIC DIGITAL BREAST TOMOSYNTHESIS, RIGHT TARGETED RIGHT BREAST ULTRASOUND CLINICAL INFORMATION: Right breast densities upper outer aspect. COMPARISON: Mammography: 10/16/2022 and studies dating back to 06/20/2019. TECHNIQUE: Digital breast tomosynthesis is performed. 2D images are generated from the tomosynthesis. The following views are obtained: Full-field 90 degree mediolateral view and spot compression mediolateral oblique view. FINDINGS: The breasts are heterogeneously dense, which may obscure small masses (ACR BI-RADS breast composition Category c). Additional views show no significant mass, architectural abnormality, or abnormal calcifications. There remains residual dense breast tissue limiting ability to see discrete lesions. Targeted right breast ultrasound did not demonstrate any abnormal cystic or solid masses. No region of abnormal distal sound shadowing was appreciated. No edematous change within the parenchyma is noted. Results are discussed with the patient at time of visit. MM/MM tomosynthesis added views R IMPRESSION: No mammographic or ultrasound evidence of malignancy. ASSESSMENT: BI-RADS 1: Negative. RECOMMENDATION: Routine annual mammography screening. This patient's information was entered into a reminder system with a target due date for their next mammogram.
== END 2022-10-30 08:27 | disposition home or self-care (01) ==
LOC: HO.MAMMO 08:26
PROVIDERS: PCP Internal Medicine; Visit Provider Internal Medicine
DX: R92.2 Inconclusive mammogram (principal)
CPT/HCPCS: 76642; 77061; 77065

== ENCOUNTER 2022-11-20 12:20 | Outpatient (REF) | payer OTHER, SELFPAY ==
--- NOTE | ~2022-11-20 | US_ITS ---
EXAMINATION: US RETROPERITONEAL LIMITED (RENAL ONLY) CLINICAL INFORMATION: Other microscopic hematuria. COMPARISON: None TECHNIQUE: Real-time imaging of the kidneys. FINDINGS: RIGHT KIDNEY: 10.0 x 4.4 x 5.1 cm (SAG x AP x TRV). The kidney is normal in size, contour, and echogenicity. Renal cortical thickness is normal. No calculi or focal parenchymal lesions. No hydronephrosis. LEFT KIDNEY: 9.7 x 4.9 x 4.8 cm (SAG x AP x TRV). The kidney is normal in size, contour, and echogenicity. Renal cortical thickness is normal. No calculi or focal parenchymal lesions. No hydronephrosis. US/US renal BI IMPRESSION: Unremarkable examination.
== END 2022-11-20 12:21 | disposition home or self-care (01) ==
LOC: HO.HMGCX 12:20
PROVIDERS: PCP Internal Medicine; Visit Provider Nurse Practitioner Family
DX: R31.29 Other microscopic hematuria (principal)
CPT/HCPCS: 76775

== ENCOUNTER → 2022-11-27 12:36 | Outpatient (BNVA) | payer OTHER, SELFPAY | PROVIDERS: PCP Internal Medicine; Visit Provider Internal Medicine | DX: M81.0 Age-related osteoporosis without current pathological fracture (principal); E55.9 Vitamin D deficiency, unspecified; Z79.899 Other long term (current) drug therapy | CPT/HCPCS: 99212 ==

== ENCOUNTER 2022-11-27 13:32 | Outpatient (REF) | payer OTHER, SELFPAY ==
[2022-11-27 17:18] LABS: Alanine Aminotransferase 22 U/L (0-31); Albumin Level 4.5 g/dL (3.5-5.0); Alkaline Phosphatase 56 U/L (39-117); Anion Gap 11 (12-20); Aspartate Amino Transferase 22 U/L (5-31); Bilirubin Total 0.5 mg/dL (0.0-1.0); Blood Urea Nitrogen 17 mg/dL (9-16); Calcium 10.3 mg/dL (8.4-10.2); Carbon Dioxide 32 mmol/L (22-29); Chloride 105 mmol/L (96-108); Estimated Glomerular Filt Rate > 60; Glucose Random 98 mg/dL (60-115); Phosphorus 3.6 mg/dL (2.7-4.5); Potassium 4.3 mmol/L (3.3-5.1); Sodium 144 mmol/L (135-145); Total Protein 6.8 g/dL (6.5-8.0)
[2022-11-27 17:33] LABS: Free T4 (Free Thyroxine) 1.08 ng/dL (0.71-1.85); Thyroid Stimulating Hormone 1.32 uIU/mL (0.32-4.0); Vitamin D 25-OH Total 38.8 ng/mL (>30)
[2022-12-02 14:54] LABS: Calcium (PTHI) 10.5 mg/dL (8.6-10.4); PTHI 67 pg/mL (16-77)
== END 2022-11-27 13:33 | disposition home or self-care (01) ==
LOC: HO.HMGCLDS 13:32
PROVIDERS: PCP Internal Medicine; Visit Provider Internal Medicine
DX: E55.9 Vitamin D deficiency, unspecified (principal); M81.0 Age-related osteoporosis without current pathological fracture
CPT/HCPCS: 36415; 80053; 82306; 83970; 84100; 84439; 84443

== ENCOUNTER 2022-11-29 08:27 | Outpatient (REF) | payer OTHER, SELFPAY ==
[2022-12-05 04:38] LABS: N-Telopeptide 32 (see note); NTXCreaRU 195 mg/dL (20-275)
== END 2022-11-29 08:28 | disposition home or self-care (01) ==
LOC: HO.HMGCLNP 08:27
PROVIDERS: Visit Provider Internal Medicine
DX: M81.0 Age-related osteoporosis without current pathological fracture (principal)
CPT/HCPCS: 82523

== ENCOUNTER → 2022-12-15 12:58 | Outpatient (BNVA) | payer OTHER, SELFPAY | PROVIDERS: PCP Internal Medicine; Visit Provider Internal Medicine | DX: M81.0 Age-related osteoporosis without current pathological fracture (principal); E21.3 Hyperparathyroidism, unspecified; E55.9 Vitamin D deficiency, unspecified | CPT/HCPCS: 99212 ==

== ENCOUNTER 2022-12-25 08:52 | Outpatient (REF) | payer OTHER, SELFPAY ==
[2022-12-26 09:07] LABS: BV Int Neg Control Negative (Negative); BV Int Pos Control Positive (Positive)
== END 2022-12-25 08:53 | disposition home or self-care (01) ==
LOC: HO.LAB 08:52
PROVIDERS: PCP Internal Medicine; Visit Provider Advanced Practice Midwife
DX: Z01.419 Encounter for gynecological examination (general) (routine) without abnormal findings (principal); N89.8 Other specified noninflammatory disorders of vagina; R23.2 Flushing; R68.82 Decreased libido; Z20.2 Contact with and (suspected) exposure to infections with a predominantly sexual mode of transmission
CPT/HCPCS: 87480; 87510; 87660

== ENCOUNTER 2023-02-05 10:06 | Outpatient (REF) | payer OTHER, SELFPAY ==
[2023-02-05 11:59] LABS: Alanine Aminotransferase 26 U/L (0-31); Albumin Level 4.6 g/dL (3.5-5.0); Alkaline Phosphatase 64 U/L (39-117); Anion Gap 11 (12-20); Aspartate Amino Transferase 24 U/L (5-31); Bilirubin Total 0.7 mg/dL (0.0-1.0); Blood Urea Nitrogen 12 mg/dL (9-16); Calcium 10.1 mg/dL (8.4-10.2); Carbon Dioxide 30 mmol/L (22-29); Chloride 105 mmol/L (96-108); Cholesterol 197 mg/dL; Estimated Glomerular Filt Rate > 60; Glucose Fasting 91 mg/dL (60-99); HDL Cholesterol 70 mg/dL; LDL Cholesterol Calculated 101 mg/dl; Potassium 4.2 mmol/L (3.3-5.1); Sodium 142 mmol/L (135-145); Total Protein 7.1 g/dL (6.5-8.0); Triglycerides 131 mg/dL
[2023-02-05 12:18] LABS: TSH reflex Free T4 1.48 uIU/mL (0.32-4.0)
== END 2023-02-05 10:07 | disposition home or self-care (01) ==
LOC: HO.HMGCLDS 10:06
PROVIDERS: Visit Provider Internal Medicine
DX: F33.9 Major depressive disorder, recurrent, unspecified (principal); F41.0 Panic disorder [episodic paroxysmal anxiety]; E78.9 Disorder of lipoprotein metabolism, unspecified; E03.8 Other specified hypothyroidism; M81.0 Age-related osteoporosis without current pathological fracture; Z91.09 Other allergy status, other than to drugs and biological substances
CPT/HCPCS: 36415; 80053; 80061; 84443

== ENCOUNTER 2023-02-10 10:34 | Outpatient (REF) | payer OTHER, SELFPAY ==
--- NOTE | ~2023-02-10 | XR_ITS ---
EXAMINATION: XR CERVICAL SPINE CLINICAL INFORMATION: Neck pain COMPARISON: None available. TECHNIQUE: 3 views of the cervical spine were obtained. FINDINGS: Mild 2 mm anterior subluxation of C4 with respect to C5. Bone alignment is otherwise normal. No fracture or dislocation. Mild degenerative spondylosis at C6-C7. Normal disc spaces. Normal prevertebral soft tissues. XR/XR cervical spine 2V IMPRESSION: Mild degenerative spondylosis at C6-C7.
== END 2023-02-10 10:35 | disposition home or self-care (01) ==
LOC: HO.HMGCX 10:34
PROVIDERS: Visit Provider Internal Medicine
DX: M54.2 Cervicalgia (principal)
CPT/HCPCS: 72040

== ENCOUNTER 2023-07-24 08:42 | Outpatient (AMB) | payer OTHER, SELFPAY ==
[2023-07-24 08:47] VITALS: BP 118/78; PULSE 93; O2SAT 98; BMI 26.7
--- NOTE | 2023-07-24 08:47 | A.OFFPC_ITS ---
Vital Signs 3 07/24/23 08:47 Height 5 ft 4 in Weight 155 lb 6 oz BMI 26.7 BP 118/78 Blood Pressure Location Lt brachial Position Sitting Pulse 93 Pulse Source Pulse Oximeter Pulse Oximetry (%) 98 Oxygen Delivery Method Room Air Intake Visit Reasons: Due 4 month Follow Up~ Allergies fluconazole [From DIFLUCAN] Allergy (Severe, Verified 07/24/23 08:47) ANGIOEDEMA acetaminophen [Fioricet] Allergy (Unknown, Verified 07/24/23 08:47) Unknown butalbital [Fioricet] Allergy (Unknown, Verified 07/24/23 08:47) Unknown caffeine [Fioricet] Allergy (Unknown, Verified 07/24/23 08:47) Unknown ciprofloxacin [Cipro] Allergy (Unknown, Verified 07/24/23 08:47) Unknown sulfamethoxazole Allergy (Unknown, Verified 07/24/23 08:47) Unknown Medication List - Last Reconciled 07/24/23 by Coco Hoover MD apremilast (Otezla) 30 mg PO BID bupropion HCl (Wellbutrin SR) 150 mg PO QAM 90 days fkrqmpo-[id number]-xokz-copper-raúl 325 mg-12.5 mcg -2.75 mg (Citracal-D3 Maximum Plus) 1 tab PO BID 30 days cetirizine (Zyrtec) 10 mg PO DAILY cholecalciferol (vitamin D3) 50 mcg PO DAILY fluticasone propionate 50 mcg/actuation (Allergy Relief (fluticasone)) 1 spray intranasal DAILY 90 days levothyroxine (Euthyrox) 25 mcg PO DAILY 90 days mometasone 0.1% 0 appl topical hoygx-8z-whe-epa-fish oil 300-1,000 mg (Melvin-3 Fish Oil) 1 cap PO DAILY simvastatin 40 mg PO BEDTIME 90 days solifenacin (Vesicare) 10 mg PO DAILY vitamin B complex (B-Complex tablet) 1 tab PO DAILY Tobacco use date assessed: 07/24/23 Dental Screening Dental Screen Date: 07/24/23 Did you have a dental visit in the last 12 months?: No Did you have a dental problem in the last 6 months where you did not have access to dental care?: No Was dental information given to patient?: Patient has dentist HPI Due 4 month Follow Up~ 2 HPI0 Details Patient is a 57-year-old female came in today for her regular follow-up appointment Complaining of mild sore throat for the past 2 days On examination I do not see any exudate or erythema I would recommend gargle with warm water and tsp of salt as needed Also complaining of lower back pain off and on when she is active Known radiating mild Continue to be slightly depressed patient is on Wellbutrin 150 mg in the morning Lipid disorder:? Patient is currently on simvastatin 40 mg LDL is well controlled now, patient is tolerating medication she is to continue that Allergies : Stable with Flonase and long-acting antihistamine She is also on alendronate through endocrinology for osteoporosis Hyperparathyroidism: Patient is going to have a surgery in September Continue levothyroxine 25 mg for hypothyroidism, TSH is stable Patient is established with the Urology for overactive bladder Follow-up 4 months PFS Medical History Fall Hyperparathyroidism Urinary frequency Vitamin D deficiency Osteoporosis Colon cancer screening Numbness of left hand Constipation Hypercholesteremia Irritable bladder Lumbar pain Other specified hypothyroidism Age related osteoporosis Surgical History History of esophagogastroduodenoscopy (EGD) (~2001) Hx of colonoscopy History of nasal surgery Hx of breast reduction, elective History of appendectomy History of hysterectomy Family History Father Myocardial infarction History of open heart surgery Cardiac defibrillator in place Mother CVD (cardiovascular disease) Thyroid disease Heart problem Paternal Grandmother Breast cancer Social History Household Members: Family Household Members Other:: sister Housing: House Alcohol intake: never Patient Tobacco Use Status: Never used Tobacco e-Cigarette/Vaping Use: Never Used service: No Current occupational status: employed Current occupation: [employer] Sexual orientation: Straight/Heterosexual Gender identity: Female Cognitive needs: No Hearing needs: No Vision needs: Yes Questionnaire PHQ-9 Over the last 2 weeks, how often have you been bothered by any of the following problems? 1. Little interest or pleasure in doing things: not at all 2. Feeling down, depressed, or hopeless: not at all 3. Trouble falling or staying asleep, or sleeping too much: not at all 4. Feeling tired or having little energy: not at all 5. Poor appetite or overeating: nearly every day 6. Feeling bad about yourself - or that you are a failure or have let yourself or your family down: not at all 7. Trouble concentrating on things, such as reading the newspaper or watching television: more than half the days 8. Moving or speaking so slowly that other people could have noticed. Or the opposite - being so fidgety or restless that you have been moving around a lot more than usual: not at all 9. Thoughts that you would be better off or of hurting yourself in some way: not at all Total score: 5 Depression Screening Interpretation: Negative Depression Screening Done: Yes 93513 - PHQ-9 Billing: Yes Source: Developed by Drs. Braulio Gray, Amarilis Morales, Endy Atkinson and colleagues, with an educational beckie from [employer]. Thrive Questionnaire Date Thrive assessed: 01/01/22 AUDIT C Alcohol Use Questionnaire (AUDIT-C) 1. How often do you have a drink containing alcohol?: Never 3. How often do you have six or more drinks on one occasion?: Never Total Score: 0 Score Reviewed/Action Taken: Yes RYAN-7 AMB Questionnaire RYAN-7 Date RYAN - 7 assessed: 07/24/23 Feeling nervous, anxious, or on edge: 1 = Several days Not being able to stop or control worryin = Several days Worrying too much about different things: 1 = Several days Trouble relaxin = Several days Being so restless that it is hard to sit still: 1 = Several days Becoming easily annoyed or irritable: 1 = Several days Feeling afraid as if something awful might happen: 0 = Not at all Total RYAN-7 score (0-4 normal; 5-9 mild; 10-14 moderate; 15-21 severe): 6 Source: Developed by Drs. Braulio Gray, Amarilis Morales, Endy Atkinson and colleagues, with an educational beckie from [employer]. RYAN-7 Assessment Billing RYAN-7 Assessment Tool: RYAN-7 Assessment 77671 Review of Systems Const Denies chills and Denies fever(s) ENT Denies epistaxis and Denies nasal discharge Card Denies chest pain Resp Denies chest congestion, Denies cough and Denies hemoptysis GI Denies diarrhea and Denies nausea Skin/Breast Denies rash Neuro Reports no additional complaints Psych Reports no additional complaints Endo Reports no additional complaints Physical exam (Primary Care) Vital Signs: Last Vital Signs Pulse 93 07/24/23 08:47 BP 118/78 07/24/23 08:47 Pulse Ox 98 07/24/23 08:47 Oxygen Delivery Method Room Air 07/24/23 08:47 BMI result Body Mass Index 26.7 Tobacco/Smoking Status: Tobacco use Status Tobacco use date assessed 07/24/23 07/24/23 08:49 Patient Tobacco Use Status Never used Tobacco 07/24/23 08:49 e-Cigarette/Vaping Use Never Used 07/24/23 08:49 PHQ-9: PHQ-9 Score PHQ-9: Total score 5 07/24/23 10:15 Depression Screening Interpretation: Negative Thrive Assessment: Date of Thrive Assessment Date Thrive assessed 01/01/22 07/24/23 08:49 Const General: cooperative, comfortable and no acute distress Orientation/consciousness: patient oriented x3 HENMT Head: Yes normocephalic Eyes General: appearance normal, both eyes and all related structures Neck Neck: Yes supple Resp Effort & Inspection: normal respiratory effort, no cough and no stridor Cardio Rhythm: regular rhythm Heart sounds: S1 normal heart sound present and S2 normal heart sound present Back/Spine/Pelvis Back/spine/pelvis image: 2 1. Mild paraspinal discomfort, range of motion intact Skin General skin exam: turgor normal Neuro General: patient oriented x3, tone normal and moves all extremities Extrem Right lower extremity: no edema Left lower extremity: no edema Assessment and Plan Assessment & Plan (1) Major depression, recurrent: Code(s): F33.9 - Major depressive disorder, recurrent, unspecified Qualifiers: Active/Remission status: in partial remission Qualified Code(s): F33.41 - Major depressive disorder, recurrent, in partial remission (2) Panic anxiety syndrome: Code(s): F41.0 - Panic disorder [episodic paroxysmal anxiety] (3) Hyperparathyroidism: Code(s): E21.3 - Hyperparathyroidism, unspecified (4) Environmental allergies: Code(s): Z91.09 - Other allergy status, other than to drugs and biological substances (5) Lipid disorder: Code(s): E78.9 - Disorder of lipoprotein metabolism, unspecified (6) Vitamin D deficiency: Code(s): E55.9 - Vitamin D deficiency, unspecified (7) Other specified hypothyroidism: Code(s): E03.8 - Other specified hypothyroidism (8) Age related osteoporosis: Code(s): M81.0 - Age-related osteoporosis without current pathological fracture Qualifiers: Presence of current pathological fracture: without current pathological fracture Qualified Code(s): M81.0 - Age-related osteoporosis without current pathological fracture (9) Lower back pain: Code(s): M54.50 - Low back pain, unspecified Qualifiers: Back pain laterality: bilateral Chronicity: chronic Sciatica presence: without sciatica Qualified Code(s): M54.50 - Low back pain, unspecified; G89.29 - Other chronic pain (10) Sore throat: Code(s): J02.9 - Acute pharyngitis, unspecified Plan Patient is a 57-year-old female came in today for her regular follow-up appointment Complaining of mild sore throat for the past 2 days On examination I do not see any exudate or erythema I would recommend gargle with warm water and tsp of salt as needed Also complaining of lower back pain off and on when she is active Known radiating mild Continue to be slightly depressed patient is on Wellbutrin 150 mg in the morning Lipid disorder:? Patient is currently on simvastatin 40 mg LDL is well controlled now, patient is tolerating medication she is to continue that Allergies : Stable with Flonase and long-acting antihistamine She is also on alendronate through endocrinology for osteoporosis Hyperparathyroidism: Patient is going to have a surgery in September Continue levothyroxine 25 mg for hypothyroidism, TSH is stable Patient is established with the Urology for overactive bladder Follow-up 4 months Orders: Orders 2 Comprehensive Met. Panel Today E03.8 - Other specified hypothyroidism, E21.3 - Hyperparathyroidism, unspecified, E55.9 - Vitamin D deficiency, unspecified, E78.9 - Disorder of lipoprotein metabolism, unspecified, F33.9 - Major depressive disorder, recurrent, unspecified, F41.0 - Panic disorder [episodic paroxysmal anxiety], M81.0 - Age-related osteoporosis without current pathological fracture, Z91.09 - Other allergy status, other than to drugs and biological substances TSH reflex Free T4 Today E03.8 - Other specified hypothyroidism, E21.3 - Hyperparathyroidism, unspecified, E55.9 - Vitamin D deficiency, unspecified, E78.9 - Disorder of lipoprotein metabolism, unspecified, F33.9 - Major depressive disorder, recurrent, unspecified, F41.0 - Panic disorder [episodic paroxysmal anxiety], M81.0 - Age-related osteoporosis without current pathological fracture, Z91.09 - Other allergy status, other than to drugs and biological substances Complete Blood Count Auto Diff Today E03.8 - Other specified hypothyroidism, E21.3 - Hyperparathyroidism, unspecified, E55.9 - Vitamin D deficiency, unspecified, E78.9 - Disorder of lipoprotein metabolism, unspecified, F33.9 - Major depressive disorder, recurrent, unspecified, F41.0 - Panic disorder [episodic paroxysmal anxiety], M81.0 - Age-related osteoporosis without current pathological fracture, Z91.09 - Other allergy status, other than to drugs and biological substances LDL Cholesterol Direct Today E03.8 - Other specified hypothyroidism, E21.3 - Hyperparathyroidism, unspecified, E55.9 - Vitamin D deficiency, unspecified, E78.9 - Disorder of lipoprotein metabolism, unspecified, F33.9 - Major depressive disorder, recurrent, unspecified, F41.0 - Panic disorder [episodic paroxysmal anxiety], M81.0 - Age-related osteoporosis without current pathological fracture, Z91.09 - Other allergy status, other than to drugs and biological substances Vitamin D 25-OH (D2 and D3) Today E03.8 - Other specified hypothyroidism, E21.3 - Hyperparathyroidism, unspecified, E55.9 - Vitamin D deficiency, unspecified, E78.9 - Disorder of lipoprotein metabolism, unspecified, F33.9 - Major depressive disorder, recurrent, unspecified, F41.0 - Panic disorder [episodic paroxysmal anxiety], M81.0 - Age-related osteoporosis without current pathological fracture, Z91.09 - Other allergy status, other than to drugs and biological substances Coding Level of Care Code Est Pt Level 4 (36863) Diagnoses Recurrent major depressive disorder, in partial remission F33.41 Active/Remission status: in partial remission Panic anxiety syndrome F41.0 Hyperparathyroidism E21.3 Environmental allergies Z91.09 Lipid disorder E78.9 Vitamin D deficiency E55.9 Other specified hypothyroidism E03.8 Age-related osteoporosis without current pathological fracture M81.0 Presence of current pathological fracture: without current pathological fracture Chronic bilateral low back pain without sciatica M54.50; G89.29 Back pain laterality: bilateral Chronicity: chronic Sciatica presence: without sciatica Sore throat J02.9 Additional Codes RYAN-7 Assessment Billing - RYAN-7 Assessment Tool: RYAN-7 Assessment [id number] ([id number])
== END 2023-07-24 10:41 | disposition home or self-care (01) ==
LOC: HO.HMGC 08:43
PROVIDERS: PCP Internal Medicine; Visit Provider Internal Medicine
DX: E21.3 Hyperparathyroidism, unspecified (principal); F33.41 Major depressive disorder, recurrent, in partial remission; F41.0 Panic disorder [episodic paroxysmal anxiety]; Z91.09 Other allergy status, other than to drugs and biological substances; E78.9 Disorder of lipoprotein metabolism, unspecified; E55.9 Vitamin D deficiency, unspecified; E03.8 Other specified hypothyroidism; M81.0 Age-related osteoporosis without current pathological fracture; M54.50 Low back pain, unspecified; G89.29 Other chronic pain; J02.9 Acute pharyngitis, unspecified
CPT/HCPCS: 99214

== ENCOUNTER 2023-07-27 08:40 | Outpatient (REF) | payer OTHER, SELFPAY ==
[2023-07-27 11:18] LABS: Basophils Percent Auto 0.5 % (0-2); Eosinophils Absolute Auto 0.1 X10*3/uL (0.0-0.4); Eosinophils Percent Auto 1.9 % (0-4); Hematocrit 42.2 % (37.0-47.0); Hemoglobin 13.9 g/dl (12.0-16.0); Imm Gran Abs Auto 0.03 X10*3/uL (0.00-0.03); Imm Gran Pct Auto 0.4 % (0.0-0.4); Lymphocytes Absolute Auto 1.9 X10*3/uL (1.2-4.9); Lymphocytes Percent Auto 25.7 % (20-40); MANUAL DIFF FLAG NO; Mean Corpuscular HGB Conc 32.9 g/dl (31.0-35.0); Mean Corpuscular Hemoglobin 29.4 pg (27.0-33.0); Mean Corpuscular Volume 89.2 fL (80.0-98.0); Mean Platelet Volume 10.2 fL (9.4-12.3); Monocytes Absolute Auto 0.4 X10*3/uL (0.1-1.2); Monocytes Percent Auto 5.9 % (2-11); Neutrophils Absolute Auto 4.8 x10*3/uL (2.0-8.3); Neutrophils Percent Auto 65.6 % (45-73); Platelet Count 278 X10*3/uL (160-400); Red Blood Count 4.73 X10*6/uL (4.20-5.50); Red Cell Distribution Width 12.8 % (11.0-16.0); White Blood Count 7.3 X10*3/uL (4.8-10.8)
[2023-07-27 11:49] LABS: Alanine Aminotransferase 24 U/L (0-31); Albumin Level 4.5 g/dL (3.5-5.0); Alkaline Phosphatase 80 U/L (39-117); Anion Gap 14 (12-20); Aspartate Amino Transferase 20 U/L (5-31); Bilirubin Total 0.5 mg/dL (0.0-1.0); Blood Urea Nitrogen 15 mg/dL (9-16); Calcium 10.3 mg/dL (8.4-10.2); Carbon Dioxide 28 mmol/L (22-29); Chloride 103 mmol/L (96-108); Estimated Glomerular Filt Rate > 60; Glucose Random 92 mg/dL (60-115); Potassium 4.4 mmol/L (3.3-5.1); Sodium 141 mmol/L (135-145); Total Protein 7.5 g/dL (6.5-8.0)
[2023-07-27 11:51] LABS: TSH reflex Free T4 1.33 uIU/mL (0.32-4.0)
[2023-07-28 13:49] LABS: LDL Cholesterol Direct 118 mg/dL (<100)
[2023-07-31 13:29] LABS: Vitamin D 25-OH, D2 <4 ng/mL; Vitamin D 25-OH, D3 29 ng/mL; Vitamin D 25-OH, Total 29 ng/mL (30-100)
== END 2023-07-27 08:41 | disposition home or self-care (01) ==
LOC: HO.HMGCLDS 08:40
PROVIDERS: PCP Internal Medicine; Visit Provider Internal Medicine
DX: F33.9 Major depressive disorder, recurrent, unspecified (principal); F41.0 Panic disorder [episodic paroxysmal anxiety]; E78.9 Disorder of lipoprotein metabolism, unspecified; E55.9 Vitamin D deficiency, unspecified; E03.8 Other specified hypothyroidism; M81.0 Age-related osteoporosis without current pathological fracture; E21.3 Hyperparathyroidism, unspecified; Z91.09 Other allergy status, other than to drugs and biological substances
CPT/HCPCS: 36415; 80053; 82306; 83721; 84443; 85025

== ENCOUNTER 2023-07-30 14:54 | Outpatient (AMB) | payer OTHER, SELFPAY ==
--- NOTE | 2023-07-30 15:06 | MHC.OFFVIS ---
Intake Vital Signs 07/30/23 15:07 Height 5 ft 4 in Weight 153 lb 10.595 oz BMI 26.4 BP 120/70 Blood Pressure Location Rt brachial Position Sitting Pulse 86 Pulse Source Pulse Oximeter Temp 97 F Temp Source Skin Pulse Oximetry (%) 98 Oxygen Delivery Method Room Air Intake Visit Reasons: Joint Pain Intake Note: New patient here for joint pain. 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 c/o right knee pain radiating down the leg. Reports h/o psoriasis. Referred to us by deckhand oyster dredge, Dr. Veras. Reports concern for plantar fasciitis. Does not see podiatry. 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 Name: Dayanna Weston Information Interpreted: clinical only Accompanied by: Self / Same As Patient Allergies fluconazole [From DIFLUCAN] Allergy (Severe, Verified 07/30/23 15:12) ANGIOEDEMA acetaminophen [Fioricet] Allergy (Unknown, Verified 07/30/23 15:12) Unknown butalbital [Fioricet] Allergy (Unknown, Verified 07/30/23 15:12) Unknown caffeine [Fioricet] Allergy (Unknown, Verified 07/30/23 15:12) Unknown ciprofloxacin [Cipro] Allergy (Unknown, Verified 07/30/23 15:12) Unknown sulfamethoxazole Allergy (Unknown, Verified 07/30/23 15:12) Unknown Medication List - Last Reconciled 07/30/23 by Raquel Sanchez MD apremilast (Otezla) 30 mg PO BID bupropion HCl (Wellbutrin SR) 150 mg PO QAM 90 days thwcsnf-X4-cvva-copper-raúl 325 mg-12.5 mcg -2.75 mg (Citracal-D3 Maximum Plus) 1 tab PO BID 30 days cetirizine (Zyrtec) 10 mg PO DAILY cholecalciferol (vitamin D3) 50 mcg PO DAILY fluticasone propionate 50 mcg/actuation (Allergy Relief (fluticasone)) 1 spray intranasal DAILY 90 days levothyroxine (Euthyrox) 25 mcg PO DAILY 90 days mometasone 0.1% 0 appl topical infgu-5p-qda-epa-fish oil 300-1,000 mg ([place]-3 Fish Oil) 1 cap PO DAILY simvastatin 40 mg PO BEDTIME 90 days solifenacin (Vesicare) 10 mg PO DAILY vitamin B complex (B-Complex tablet) 1 tab PO DAILY HPI HPI Comments History of Present Illness Details This is a 57-year-old female who presents for evaluation of right knee pain. Patient states that she has had psoriasis symptoms for about 8 years which was treated with topical creams. However 8 months ago she was evaluated by deckhand oyster dredge Dr. Nogueira and was diagnosed with psoriasis. She was started on Otezla with resolution of her psoriasis. She states that for about a year so she has been having intermittent right knee pain. The pain is in the anterior-inferior medial aspect of the knee. She treated this with topical medications such as Anthony-Tenorio, she also takes Tylenol or ibuprofen with moderate relief. She also states that she has intermittent low back pain and stiffness. She denies any swollen joints. She has sister with lupus [facility] Medical History (Updated 07/30/23 @ 15:55 by Raquel Sanchez MD) Hx of psoriasis Fall Hyperparathyroidism Urinary frequency Vitamin D deficiency Osteoporosis Colon cancer screening Numbness of left hand Constipation Hypercholesteremia Irritable bladder Lumbar pain Other specified hypothyroidism Age related osteoporosis Surgical History History of esophagogastroduodenoscopy (EGD) (~2001) Hx of colonoscopy History of nasal surgery Hx of breast reduction, elective History of appendectomy History of hysterectomy Family History Father Myocardial infarction History of open heart surgery Cardiac defibrillator in place Mother CVD (cardiovascular disease) Thyroid disease Heart problem Paternal Grandmother Breast cancer Sister Lupus Social History Household Members: Family Household Members Other:: sister Housing: House Alcohol intake: current Alcohol intake frequency: holidays/special occasions only Patient Tobacco Use Status: Never used Tobacco e-Cigarette/Vaping Use: Never Used service: No Current occupational status: employed Current occupation: [employer] Sexual orientation: Straight/Heterosexual Gender identity: Female Cognitive needs: No Hearing needs: No Vision needs: Yes Female Reproductive History Menstrual Total pregnancies: 2 Full term: 2 Review of Systems Eyes Reports blurry vision, Reports diplopia and Reports dry eyes ENT Reports tinnitus GI Reports constipation Musc Reports back pain, Reports arthralgias, Denies joint swelling, Reports limited range of motion and Reports stiffness Physical Exam Vital Signs: Last Vital Signs Temp 97 F 07/30/23 15:07 Pulse 86 07/30/23 15:07 BP 120/70 07/30/23 15:07 Pulse Ox 98 07/30/23 15:07 Oxygen Delivery Method Room Air 07/30/23 15:07 BMI result Body Mass Index 26.4 Const General: cooperative, healthy appearing and comfortable Nutritional Appearance: overweight Orientation/consciousness: patient oriented x3 Limitations: no limitations HEENT Head: Yes normocephalic and Yes atraumatic Mouth: moist mucous membranes Resp Effort & Inspection: normal respiratory effort and able to speak in complete sentences Auscultation: clear to auscultation bilaterally Cardio Rate: regular rate GI Inspection: No distended Palpation (GI): Soft to palpation and nontender Skin General skin exam: no rashes or lesions noted Neuro General: patient oriented x3 Extrem Other: Bilateral osteoarthritic changes of both hands with no active synovitis Normal range of motion of hands, wrists, elbows and shoulders without pain Normal nailfold capillaroscopy Vin test 10-15 cm Negative straight leg raise test, negative Fabere test bilaterally No knee pain with full flexion and extension Some tenderness to palpation in the anterior medial inferior aspect of the Assessment & Plan Assessment & Plan (1) Multiple joint pain: Code(s): M25.50 - Pain in unspecified joint Plan: This is a 57-year-old female with psoriasis who presents for evaluation of multiple joint pain. The majority of her pain is in her right knee. Her sister has SLE. Will order comprehensive serology to screen for underlying autoimmune rheumatic disease. Her right knee pain can be prepatellar bursitis. Check bilateral knee x-rays Plan I spent 46 minutes reviewing patient's chart, evaluating patient, ordering diagnostic workup, counseling patient and documenting in the chart Orders: Orders Erythrocyte Sedimentation Rate Today M32.9 - Systemic lupus erythematosus, unspecified SAUL Reflex Titer and Pattern Today M32.9 - Systemic lupus erythematosus, unspecified Anti Extractable Nuclear Ag Today M32.9 - Systemic lupus erythematosus, unspecified Anti DNA DS Antibody Today M32.9 - Systemic lupus erythematosus, unspecified Protein Creatinine Ratio, Ur Today M32.9 - Systemic lupus erythematosus, unspecified Rheumatoid Factor Today M32.9 - Systemic lupus erythematosus, unspecified XR knee LT 3V Today M25.50 - Pain in unspecified joint XR knee standing BI Today M25.50 - Pain in unspecified joint Complete Blood Count Auto Diff Today M32.9 - Systemic lupus erythematosus, unspecified Comprehensive Met. Panel Today M32.9 - Systemic lupus erythematosus, unspecified Hepatitis A,B,C Profile Today Z11.59 - Encounter for screening for other viral diseases T Spot TB Today Z11.7 - Encounter for testing for latent tuberculosis infection Immunofixation Pnl, Serum Today M32.9 - Systemic lupus erythematosus, unspecified Protein Electrophoresis, Serum Today M32.9 - Systemic lupus erythematosus, unspecified Complement C3 Today M32.9 - Systemic lupus erythematosus, unspecified Complement C4 Today M32.9 - Systemic lupus erythematosus, unspecified Sjogren's Antibodies Today M32.9 - Systemic lupus erythematosus, unspecified UA w Microscopic Today M32.9 - Systemic lupus erythematosus, unspecified Cyclic Citrullinated Peptide Today M32.9 - Systemic lupus erythematosus, unspecified XR knee RT 3V Today M25.50 - Pain in unspecified joint Coding Level of Care Code New Pt Level 4 (38453) Diagnoses Multiple joint pain M25.50
[2023-07-30 15:07] VITALS: BP 120/70; PULSE 86; TEMP 36.1; O2SAT 98; BMI 26.4
== END 2023-07-30 15:48 | disposition home or self-care (01) ==
PROVIDERS: PCP Internal Medicine; Visit Provider Student in an Organized Health Care Education/Training Program
DX: M25.50 Pain in unspecified joint (principal)
CPT/HCPCS: 99204

== ENCOUNTER → 2023-07-30 14:54 | Outpatient (BNVA) | payer OTHER, SELFPAY | PROVIDERS: PCP Internal Medicine; Visit Provider Student in an Organized Health Care Education/Training Program | DX: M25.50 Pain in unspecified joint (principal) | CPT/HCPCS: 99202 ==

== ENCOUNTER 2023-08-20 10:31 | Outpatient (REF) | payer OTHER, SELFPAY ==
--- NOTE | ~2023-08-20 | XR_ITS ---
STUDY: Standing knees, bilateral knees INDICATION: Knee pain COMPARISON: None TECHNIQUE: AP standing knees, 3 views each knee FINDINGS: Knee joints are symmetric on standing knee view. Right: Small suprapatellar effusion. Mild medial and patellofemoral joint space narrowings. No fracture or dislocation. Left: Mild patellofemoral and medial knee joint narrowings. No fracture, dislocation or joint effusion. XR/XR knee RT 3V IMPRESSION: No acute bony pathology bilateral knees. Mild degenerative changes bilateral knees. Small right suprapatellar effusion.
--- NOTE | ~2023-08-20 | XR_ITS ---
STUDY: Standing knees, bilateral knees INDICATION: Knee pain COMPARISON: None TECHNIQUE: AP standing knees, 3 views each knee FINDINGS: Knee joints are symmetric on standing knee view. Right: Small suprapatellar effusion. Mild medial and patellofemoral joint space narrowings. No fracture or dislocation. Left: Mild patellofemoral and medial knee joint narrowings. No fracture, dislocation or joint effusion. XR/XR knee LT 3V IMPRESSION: No acute bony pathology bilateral knees. Mild degenerative changes bilateral knees. Small right suprapatellar effusion.
--- NOTE | ~2023-08-20 | XR_ITS ---
STUDY: Standing knees, bilateral knees INDICATION: Knee pain COMPARISON: None TECHNIQUE: AP standing knees, 3 views each knee FINDINGS: Knee joints are symmetric on standing knee view. Right: Small suprapatellar effusion. Mild medial and patellofemoral joint space narrowings. No fracture or dislocation. Left: Mild patellofemoral and medial knee joint narrowings. No fracture, dislocation or joint effusion. XR/XR knee standing BI IMPRESSION: No acute bony pathology bilateral knees. Mild degenerative changes bilateral knees. Small right suprapatellar effusion.
[2023-08-20 13:06] LABS: MANUAL DIFF FLAG NO
[2023-08-20 13:26] LABS: Appearance Urine Clear; Basophils Percent Auto 0.7 % (0-2); Color Urine Yellow; Eosinophils Absolute Auto 0.1 X10*3/uL (0.0-0.4); Eosinophils Percent Auto 2.5 % (0-4); Glucose Urine UA Negative (Negative); Hematocrit 42.5 % (37.0-47.0); Imm Gran Abs Auto 0.02 X10*3/uL (0.00-0.03); Imm Gran Pct Auto 0.4 % (0.0-0.4); Leukocyte Esterase Urine Moderate (2+) (Negative); Lymphocytes Absolute Auto 1.8 X10*3/uL (1.2-4.9); Mean Corpuscular HGB Conc 32.9 g/dl (31.0-35.0); Mean Corpuscular Hemoglobin 29.4 pg (27.0-33.0); Mean Corpuscular Volume 89.1 fL (80.0-98.0); Mean Platelet Volume 10.3 fL (9.4-12.3); Monocytes Absolute Auto 0.3 X10*3/uL (0.1-1.2); Neutrophils Absolute Auto 3.3 x10*3/uL (2.0-8.3); Neutrophils Percent Auto 59.4 % (45-73); Nitrite Urine Negative (Negative); Platelet Count 299 X10*3/uL (160-400); Red Blood Count 4.77 X10*6/uL (4.20-5.50); Red Cell Distribution Width 13.2 % (11.0-16.0); Specific Gravity - Urine 1.015 (1.005-1.025); UMIC TRIGGER UA YES; Urine Blood Small (1+) (Negative); Urine Ketones Negative (Negative); Urine Protein Negative (Neg-Trace); White Blood Count 5.6 X10*3/uL (4.8-10.8)
[2023-08-20 13:38] LABS: Bacteria Urine None Seen (None Seen); Hyaline Casts Urine 0-2 /LPF (0-2); RBC Urine 0-2 /HPF (0-2); Rheumatoid Factor < 13.0 IU/mL (<15.0); Squamous Epithelial Cell Urine 0-2 /HPF (0-2)
[2023-08-20 13:59] LABS: Alanine Aminotransferase 39 U/L (0-31); Albumin Level 4.6 g/dL (3.5-5.0); Alkaline Phosphatase 73 U/L (39-117); Anion Gap 11 (12-20); Aspartate Amino Transferase 32 U/L (5-31); Bilirubin Total 0.6 mg/dL (0.0-1.0); Blood Urea Nitrogen 16 mg/dL (9-16); Calcium 10.4 mg/dL (8.4-10.2); Carbon Dioxide 29 mmol/L (22-29); Chloride 104 mmol/L (96-108); Estimated Glomerular Filt Rate > 60; Glucose Random 90 mg/dL (60-115); Phosphorus 3.4 mg/dL (2.7-4.5); Sodium 140 mmol/L (135-145); Total Protein 7.8 g/dL (6.5-8.0)
[2023-08-20 14:06] LABS: Free T4 (Free Thyroxine) 1.09 ng/dL (0.71-1.85); Vitamin D 25-OH Total 57.1 ng/mL (>30)
[2023-08-20 14:08] LABS: Creatinine Urine 72.44 mg/dL; Total Protein Urine Random < 7 mg/dL (<12)
[2023-08-20 14:35] LABS: Erythrocyte Sedimentation Rate 13 MM/HR (0-20)
[2023-08-21 08:23] LABS: HBS Num1 2.69 mIU/mL (0-7.99); HBc Num1 0.07 S/CO (0.00-0.79); HBsAGNum1 0.33 S/CO (0.00-0.99); Hepatitis A Antibody IgM 0.17 Index (0-0.79); Hepatitis B Core Antibody Nonreactive (Nonreactive); Hepatitis B Surface Antigen Negative (Negative); ~HepC Num1 0.08 S/CO (0.00-0.79); ~Hepatitis A Antibody IgM Nonreactive (Nonreactive); ~Hepatitis B Surface Antibody NONREACTIVE (Nonreactive); ~Hepatitis C Antibody Nonreactive (Nonreactive)
[2023-08-21 19:33] LABS: Complement C3 150 mg/dL (83-193)
[2023-08-21 20:14] LABS: Anti DNA DS Antibody <1 IU/mL; Antibody to SS-A Antigen <1.0 NEG AI (<1.0 NEG); Antibody to SS-B Antigen <1.0 NEG AI (<1.0 NEG); SM/Ribonucleoprotein Ab <1.0 NEG AI (<1.0 NEG); Smith Protein <1.0 NEG AI (<1.0 NEG)
[2023-08-21 21:43] LABS: Prot Elec - Albumin 4.5 g/dL (3.8-4.8); Prot Elec - Alpha1 0.3 g/dL (0.2-0.3); Prot Elec - Alpha2 0.7 g/dL (0.5-0.9); Prot Elec - Beta 1 0.5 g/dL (0.4-0.6); Prot Elec - Beta 2 0.4 g/dL (0.2-0.5); Prot Elec - Gamma 0.9 g/dL (0.8-1.7); Prot Elec - Total Protein 7.3 g/dL (6.1-8.1)
[2023-08-22 14:33] LABS: TS Negative Control Passed; TS Panel A 0; TS Panel B 0; TS Positive Control Passed; TSpotTB Negative (Negative)
[2023-08-22 15:04] LABS: IgA 234 mg/dL (47-310); IgG 1034 mg/dL (600-1640); IgM 67 mg/dL (50-300)
[2023-08-24 11:34] LABS: Anti Nuclear Antibody Screen NEGATIVE (NEGATIVE)
[2023-08-24 14:34] LABS: Cyclic Citrullinated Peptide <16 UNITS
== END 2023-08-20 10:32 | disposition home or self-care (01) ==
LOC: HO.HMGCX 10:31
PROVIDERS: Absent Provider Internal Medicine; PCP Internal Medicine; Visit Provider Student in an Organized Health Care Education/Training Program
DX: Z11.59 Encounter for screening for other viral diseases (principal); Z11.7 Encounter for testing for latent tuberculosis infection; E21.3 Hyperparathyroidism, unspecified; M81.0 Age-related osteoporosis without current pathological fracture; E55.9 Vitamin D deficiency, unspecified; M32.9 Systemic lupus erythematosus, unspecified; M25.561 Pain in right knee; M25.562 Pain in left knee
CPT/HCPCS: 36415; 73562; 73564; 73565; 80053; 81001; 82306; 82570; 82784; 84100; 84156; 84165; 84439; 84443; 85025; 85652; 86038; 86160; 86200; 86225; 86235; 86334; 86431; 86481; 86704; 86706; 86709; 86803; 87340

== ENCOUNTER 2023-09-10 09:52 | Outpatient (AMB) | payer OTHER, SELFPAY ==
--- NOTE | 2023-09-10 09:53 | MHC.OFFVIS ---
Intake Vital Signs 09/10/23 09:56 Height 5 ft 4 in Weight 154 lb BMI 26.4 BP 116/98 H Blood Pressure Location Rt brachial Position Sitting Pulse 97 Pulse Source Pulse Oximeter Temp 97 F Temp Source Skin Pulse Oximetry (%) 97 Oxygen Delivery Method Room Air Intake Visit Reasons: PSO Intake Note: Pt last seen 07/30/23 presents today for follow up and test results. c/o redness on thighs, back pain Garde Manger Required: Yes Garde Manger Name: Reji Feldman162 Information Interpreted: clinical only Accompanied by: Self / Same As Patient Allergies fluconazole [From DIFLUCAN] Allergy (Severe, Verified 09/10/23 09:57) ANGIOEDEMA acetaminophen [Fioricet] Allergy (Unknown, Verified 09/10/23 09:57) Unknown butalbital [Fioricet] Allergy (Unknown, Verified 09/10/23 09:57) Unknown caffeine [Fioricet] Allergy (Unknown, Verified 09/10/23 09:57) Unknown ciprofloxacin [Cipro] Allergy (Unknown, Verified 09/10/23 09:57) Unknown sulfamethoxazole Allergy (Unknown, Verified 09/10/23 09:57) Unknown Medication List - Last Reconciled 09/10/23 by Raquel Sanchez MD apremilast (Otezla) 30 mg PO BID bupropion HCl (Wellbutrin SR) 150 mg PO QAM 90 days cbmkvbn-G8-fnnk-copper-raúl 325 mg-12.5 mcg -2.75 mg (Citracal-D3 Maximum Plus) 1 tab PO BID 30 days cetirizine (Zyrtec) 10 mg PO DAILY cholecalciferol (vitamin D3) 50 mcg PO DAILY fluticasone propionate 50 mcg/actuation (Allergy Relief (fluticasone)) 1 spray intranasal DAILY 90 days levothyroxine (Euthyrox) 25 mcg PO DAILY 90 days mometasone 0.1% 0 appl topical ebofh-7r-xkv-epa-fish oil 300-1,000 mg ([place]-3 Fish Oil) 1 cap PO DAILY simvastatin 40 mg PO BEDTIME 90 days solifenacin (Vesicare) 10 mg PO DAILY vitamin B complex (B-Complex tablet) 1 tab PO DAILY HPI HPI Comments History of Present Illness Details Patient returns for follow-up after completion of her diagnostic workup. She continues to have pain just inferomedial to her right knee. Continues to have back pain and starting to have left ankle pain. She is also complaining of a rash on both legs. Not itchy or painful. Initial history: This is a 57-year-old female who presents for evaluation of right knee pain. Patient states that she has had psoriasis symptoms for about 8 years which was treated with topical creams. However 8 months ago she was evaluated by finance officer Dr. Nogueira and was diagnosed with psoriasis. She was started on Otezla with resolution of her psoriasis. She states that for about a year so she has been having intermittent right knee pain. The pain is in the anterior-inferior medial aspect of the knee. She treated this with topical medications such as Anthony-Tenorio, she also takes Tylenol or ibuprofen with moderate relief. She also states that she has intermittent low back pain and stiffness. She denies any swollen joints. She has sister with lupus [facility] Medical History Hx of psoriasis Fall Hyperparathyroidism Urinary frequency Vitamin D deficiency Osteoporosis Colon cancer screening Numbness of left hand Constipation Hypercholesteremia Irritable bladder Lumbar pain Other specified hypothyroidism Age related osteoporosis Surgical History History of esophagogastroduodenoscopy (EGD) (~2001) Hx of colonoscopy History of nasal surgery Hx of breast reduction, elective History of appendectomy History of hysterectomy Family History Father Myocardial infarction History of open heart surgery Cardiac defibrillator in place Mother CVD (cardiovascular disease) Thyroid disease Heart problem Paternal Grandmother Breast cancer Sister Lupus Social History Household Members: Family Household Members Other:: sister Housing: House Alcohol intake: current Alcohol intake frequency: holidays/special occasions only Patient Tobacco Use Status: Never used Tobacco e-Cigarette/Vaping Use: Never Used service: No Current occupational status: employed Current occupation: [employer] Sexual orientation: Straight/Heterosexual Gender identity: Female Cognitive needs: No Hearing needs: No Vision needs: Yes Review of Systems Musc Reports back pain, Reports arthralgias, Denies joint swelling, Reports limited range of motion and Reports stiffness Skin/Breast Reports rash Physical Exam Vital Signs: Last Vital Signs Temp 97 F 09/10/23 09:56 Pulse 97 09/10/23 09:56 BP 116/98 H 09/10/23 09:56 Pulse Ox 97 09/10/23 09:56 Oxygen Delivery Method Room Air 09/10/23 09:56 BMI result Body Mass Index 26.4 Const General: cooperative, healthy appearing and comfortable Nutritional Appearance: overweight Orientation/consciousness: patient oriented x3 Limitations: no limitations HEENT Head: Yes normocephalic and Yes atraumatic Mouth: moist mucous membranes Resp Effort & Inspection: normal respiratory effort and able to speak in complete sentences Auscultation: clear to auscultation bilaterally Cardio Rate: regular rate GI Inspection: No distended Palpation (GI): Soft to palpation and nontender Skin Other: Faint Rash on inner aspect both thighs and legs, likely livido reticularis Neuro General: patient oriented x3 Extrem Other: Bilateral osteoarthritic changes of both hands with no active synovitis Normal range of motion of hands, wrists, elbows and shoulders without pain Normal nailfold capillaroscopy Vin test 10-15 cm Negative straight leg raise test, negative Joey test bilaterally No knee pain with full flexion and extension bilaterally Some tenderness to palpation in the anterior medial inferior aspect of the right knee No ankle swelling or tenderness Assessment & Plan Assessment & Plan (1) Multiple joint pain: Code(s): M25.50 - Pain in unspecified joint Plan: This is a 57-year-old female with psoriasis on Otezla who presents for evaluation of multiple joint pain. Upon evaluation there are no swollen joints. Comprehensive serology and inflammatory markers are unremarkable. Her right knee pain is likely due to prepatellar bursitis. Back pain is likely degenerative. Advised patient to start taking naproxen 500 mg Twice daily for 2 weeks then 500 mg daily for 1 week then take 1 tab once daily as needed. Follow-up in 6 weeks. Will consider ordering bilateral SI joint x-rays to evaluate for sacroiliitis Plan I spent 26 minutes reviewing patient's chart, evaluating patient, ordering diagnostic workup, counseling patient and documenting in the chart Medications: New naproxen Take 1 tab twice daily for 2 weeks then 1 tab daily for 2 weeks then take 1 tab once daily as needed for joint pain 60 tabs 0RF pain Coding Level of Care Code Est Pt Level 4 (93252) Diagnoses Multiple joint pain M25.50
[2023-09-10 09:56] VITALS: BP 116/98; PULSE 97; TEMP 36.1; O2SAT 97; BMI 26.4
== END 2023-09-10 10:27 | disposition home or self-care (01) ==
PROVIDERS: PCP Internal Medicine; Visit Provider Student in an Organized Health Care Education/Training Program
DX: M25.50 Pain in unspecified joint (principal)
CPT/HCPCS: 99214

== ENCOUNTER → 2023-09-10 09:52 | Outpatient (BNVA) | payer OTHER, SELFPAY | PROVIDERS: PCP Internal Medicine; Visit Provider Student in an Organized Health Care Education/Training Program | DX: M25.50 Pain in unspecified joint (principal) | CPT/HCPCS: 99212 ==

== ENCOUNTER 2023-09-28 16:18 | Emergency (ER) | payer OTHER, SELFPAY ==
--- NOTE | ~2023-09-28 | XR_ITS ---
EXAMINATION: XR CHEST CLINICAL INFORMATION: Chest wall pain COMPARISON: None available. TECHNIQUE: 2 views of the chest were obtained. FINDINGS: No significant abnormality is noted involving the heart, lungs, mediastinum, bony thorax or soft tissues. XR/XR chest 2V IMPRESSION: Unremarkable examination.
--- NOTE | 2023-09-28 16:22 | ECG_ITS ---
Test Reason : cp Blood Pressure : / mmHG Vent. Rate : 085 BPM Atrial Rate : 085 BPM P-R Int : 152 ms QRS Dur : 078 ms QT Int : 362 ms P-R-T Axes : 040 020 032 degrees QTc Int : 430 ms Normal sinus rhythm Normal ECG No previous ECGs available Referred By: Gisselle Haider Electronically Signed By:RASHEL GATICA MD
[2023-09-28 17:03] VITALS: BP 136/82; PULSE 97; RESP 18; TEMP 35.9; O2SAT 98; BMI 25.8
--- NOTE | 2023-09-28 17:08 | ED_ITS ---
HPI - General Adult General Chief complaint: Upper Respiratory Symptoms Stated complaint: Chest pain Time Seen by Provider: 09/28/23 19:32 Related Data Home Medications Medication Instructions Recorded Confirmed cetirizine 10 mg tablet (Zyrtec) 10 mg PO DAILY 10/15/20 07/30/23 cholecalciferol (vitamin D3) 50 50 mcg PO DAILY 12/31/20 07/30/23 mcg (2,000 unit) capsule omega-3s 300 hc-qva-isu-other 1 cap PO DAILY 02/25/21 07/30/23 [id number] oil 1,000 mg capsule ([place]-3 Fish Oil) vitamin B complex (B-Complex 1 tab PO DAILY 02/25/21 07/30/23 tablet) mometasone 0.1 % topical cream 0 appl topical 11/27/22 07/30/23 apremilast 30 mg tablet (Otezla) 30 mg PO BID 02/10/23 07/30/23 Previous Rx's Medication Instructions Recorded solifenacin 10 mg tablet (Vesicare) 10 mg PO DAILY #90 tabs 09/30/22 calcium 325 mg-vit D3 12.5 1 tab PO BID 30 days #60 tabs 10/09/22 mcg-zinc 2.75 rb-rzsgcb-malraboxj tablet (Citracal-D3 Maximum Plus) fluticasone propionate 50 1 spray intranasal DAILY 90 days 04/24/23 mcg/actuation nasal #3 multiple units spray,suspension (Allergy Relief (fluticasone)) bupropion HCl 150 mg tablet,12 hr 150 mg PO QAM 90 days #90 tabs 05/19/23 sustained-release (Wellbutrin SR) simvastatin 40 mg tablet 40 mg PO BEDTIME 90 days #90 tabs 08/10/23 levothyroxine 25 mcg tablet 25 mcg PO DAILY 90 days #90 tabs 08/27/23 (Euthyrox) naproxen 500 mg tablet See Rx Instructions PO .COMPLEX 09/10/23 pain #60 tabs cefuroxime axetil 500 mg tablet 500 mg PO BID 7 days #14 tabs 09/28/23 codeine 10 mg-guaifenesin 100 mg/5 10 ml PO Q6H PRN cough #237 mL 09/28/23 mL oral liquid prednisone 20 mg tablet 40 mg (2 x 20 mg) PO DAILY #10 tabs 09/28/23 albuterol sulfate 90 mcg/actuation 2 puff inhalation Q4-6H PRN 09/29/23 aerosol inhaler (Ventolin HFA) shortness of breath or wheezing #6.7 grams Allergies Allergy/AdvReac Type Severity Reaction Status Date / Time fluconazole [From DIFLUCAN] Allergy Severe ANGIOEDEMA Verified 09/28/23 17:07 acetaminophen [Fioricet] Allergy Unknown Unknown Verified 09/28/23 17:07 butalbital [Fioricet] Allergy Unknown Unknown Verified 09/28/23 17:07 caffeine [Fioricet] Allergy Unknown Unknown Verified 09/28/23 17:07 ciprofloxacin [Cipro] Allergy Unknown Unknown Verified 09/28/23 17:07 sulfamethoxazole Allergy Unknown Unknown Verified 09/28/23 17:07 [facility] Past Medical History Onset Date is defined in the Problem List Problems that require an onset date and time if occurred within 24 hrs of arr ival to the ED Aortic Dissection and Rupture; Neurologic impairment; Cardiopulmonary Arrest; Endotracheal Intubation; Insertion or Replacement of Mechanical Circulatory Assi st Device Medical History Hx of psoriasis Fall Hyperparathyroidism Urinary frequency Vitamin D deficiency Osteoporosis Colon cancer screening Numbness of left hand Constipation Hypercholesteremia Irritable bladder Lumbar pain Other specified hypothyroidism Age related osteoporosis Surgical History History of esophagogastroduodenoscopy (EGD) (~2001) Hx of colonoscopy History of nasal surgery Hx of breast reduction, elective History of appendectomy History of hysterectomy Family History Family History Father Myocardial infarction History of open heart surgery Cardiac defibrillator in place Mother CVD (cardiovascular disease) Thyroid disease Heart problem Paternal Grandmother Breast cancer Sister Lupus Social History Social History Household Members: Family Household Members Other:: sister Housing: House Alcohol intake: current Alcohol intake frequency: holidays/special occasions only Patient Tobacco Use Status: Never used Tobacco e-Cigarette/Vaping Use: Never Used Advance Directives: No Advance Directives Information Provided: No service: No Current occupational status: employed Current occupation: [employer] Sexual orientation: Straight/Heterosexual Gender identity: Female Cognitive needs: No Hearing needs: No Vision needs: Yes Physical Exam ED Vital Signs: Vital Signs - 24 hr 09/28/23 17:03 09/28/23 19:41 09/28/23 20:01 Temperature 96.7 F L 98.1 F Pulse Rate 97 90 90 Respiratory Rate 18 20 18 Blood Pressure 136/82 125/76 Pulse Oximetry 98 99 Oxygen Delivery Method Room Air Room Air BMI result Body Mass Index 25.8 Course Course Course Narrative: RME performed by Gisselle Haider PA-C. Patient is a 57 year old assigned female at presenting to the emergency department with chest wall pain, body pain, and a cough. Detailed physical exam and review of systems are deferred to the singer back tender.Imaging and swabs ordered. Patient placed back in the waiting room pending room availability and results. Patient was evaluated and dispositioned by Dr. Heller. Please view his note from the same date. Medications Administered Discontinued Medications Generic Name Dose Route Start Last Admin Trade Name Freq PRN Reason Stop Dose Admin Albuterol Sulfate 2 puff 09/28/23 19:37 09/28/23 19:58 Albuterol Sulfate 90 Mcg 8 Gm Inhaler INHALE 09/28/23 19:38 2 puff ONCE ONE Administration Cefuroxime Axetil 500 mg 09/28/23 19:37 09/28/23 20:30 Cefuroxime Axetil 500 Mg Tablet PO 09/28/23 19:38 500 mg ONCE ONE Administration Dexamethasone 10 mg 09/28/23 19:37 09/28/23 20:30 Dexamethasone 2 Mg Tablet PO 09/28/23 19:38 10 mg ONCE ONE Administration Guaifenesin/Codeine Phosphate 10 ml 09/28/23 19:37 09/28/23 20:30 Guaifen/Codeine Sf 200/20/10ml 10 Ml Liquid PO 09/28/23 19:38 10 ml ONCE ONE Administration Medical Decision Making Lab Data Labs: Lab Results 09/28/23 Range/Units 18:01 Influenza Type A (PCR) NEGATIVE (Negative) Influenza Type B (PCR) NEGATIVE (Negative) RSV RNA Qual (PCR) NEGATIVE (Negative) SARS-CoV-2 RNA (RT-PCR) NEGATIVE (Negative) S. pyogenes GrpA VIKTOR Negative (Negative) Discharge Plan Discharge Clinical Impression: Bronchitis Patient Disposition: Home, Self-Care Instructions: Acute Bronchitis (ED) Additional Instructions: Take medication as prescribed Follow with PCP if not better Prescriptions: New prednisone 20 mg tablet 40 mg PO DAILY Qty: 10 0RF codeine-guaifenesin 10-100 mg/5 mL liquid 10 ml PO Q6H PRN (Reason: cough) Qty: 237 0RF cefuroxime axetil 500 mg tablet 500 mg PO BID 7 Days Qty: 14 0RF albuterol sulfate [Ventolin HFA] 90 mcg/actuation HFA aerosol inhaler 2 puff inhalation Q4-6H PRN (Reason: shortness of breath or wheezing) Qty: 6.7 0RF No Action fluticasone propionate [Allergy Relief (fluticasone)] 50 mcg/actuation spray ,suspension 1 spray intranasal DAILY 90 Days Qty: 3 0RF Rx Instructions: administer into each nostril bupropion HCl [Wellbutrin SR] 150 mg tablet sustained-release 12 hr 150 mg PO QAM 90 Days Qty: 90 0RF simvastatin 40 mg tablet 40 mg PO BEDTIME 90 Days Qty: 90 1RF levothyroxine [Euthyrox] 25 mcg tablet 25 mcg PO DAILY 90 Days Qty: 90 1RF Otezla 30 mg tablet 30 mg PO BID cetirizine [Zyrtec] 10 mg tablet 10 mg PO DAILY cholecalciferol (vitamin D3) 50 mcg (2,000 unit) capsule 50 mcg PO DAILY vitamin B complex [B-Complex] Tablet 1 tab PO DAILY [place]-3 Fish Oil 300-1,000 mg capsule 1 cap PO DAILY mometasone 0.1 % cream 0 appl topical pmzzkbk-S8-knjx-copper-raúl [Citracal-D3 Maximum Plus] 325 mg-12.5 mcg -2.75 mg tablet 1 tab PO BID 30 Days Qty: 60 11RF solifenacin [Vesicare] 10 mg tablet 10 mg PO DAILY Qty: 90 0RF naproxen 500 mg tablet See Rx Instructions PO .COMPLEX Qty: 60 0RF Rx Instructions: Take 1 tab twice daily for 2 weeks then 1 tab daily for 2 weeks then take 1 tab once daily as needed for joint pain Stand Alone Forms: Work/School Release Interventions: ED Discharge Assessment Last Done: 01/08/24 20:38 Discharge Date/Time: 09/28/23 20:41
[2023-09-28 18:23] LABS: IDNOW Serial# 08D9AD1C; Strep A Nucleic Acid Negative (Negative)
[2023-09-28 18:50] LABS: Influenza A PCR NEGATIVE (Negative); Influenza B PCR NEGATIVE (Negative); Resp Syncy Virus RNA Qual PCR NEGATIVE (Negative); SARS COV2 PCR INHOUSE NEGATIVE (Negative)
[2023-09-28 19:41] VITALS: BP 125/76; PULSE 90; RESP 20; TEMP 36.7; O2SAT 99
--- NOTE | 2023-09-28 19:41 | ED.URI ---
HPI - URI/Sore Throat General Chief Complaint: Upper Respiratory Symptoms Stated Complaint: Chest pain Time Seen by Provider: 09/28/23 19:32 Source: patient Mode of arrival: ambulatory Limitations: no limitations History of Present Illness HPI Narrative: Patient been having cold symptoms with running nose cough dry cough for last 2 weeks low-grade fever with chills other workers also sick at job no shortness of breath no chest pain or abdominal pain no nausea vomiting Related Data Home Medications Medication Instructions Recorded Confirmed cetirizine 10 mg tablet (Zyrtec) 10 mg PO DAILY 10/15/20 07/30/23 cholecalciferol (vitamin D3) 50 50 mcg PO DAILY 12/31/20 07/30/23 mcg (2,000 unit) capsule omega-3s 300 bo-hzt-gct-other 1 cap PO DAILY 02/25/21 07/30/23 ssjri2t-wjld oil 1,000 mg capsule ([place]-3 Fish Oil) vitamin B complex (B-Complex 1 tab PO DAILY 02/25/21 07/30/23 tablet) mometasone 0.1 % topical cream 0 appl topical 11/27/22 07/30/23 apremilast 30 mg tablet (Otezla) 30 mg PO BID 02/10/23 07/30/23 Previous Rx's Medication Instructions Recorded solifenacin 10 mg tablet (Vesicare) 10 mg PO DAILY #90 tabs 09/30/22 calcium 325 mg-vit D3 12.5 1 tab PO BID 30 days #60 tabs 10/09/22 mcg-zinc 2.75 ls-jmlpnh-iiehlgdtg tablet (Citracal-D3 Maximum Plus) fluticasone propionate 50 1 spray intranasal DAILY 90 days 04/24/23 mcg/actuation nasal #3 multiple units spray,suspension (Allergy Relief (fluticasone)) bupropion HCl 150 mg tablet,12 hr 150 mg PO QAM 90 days #90 tabs 05/19/23 sustained-release (Wellbutrin SR) simvastatin 40 mg tablet 40 mg PO BEDTIME 90 days #90 tabs 08/10/23 levothyroxine 25 mcg tablet 25 mcg PO DAILY 90 days #90 tabs 08/27/23 (Euthyrox) naproxen 500 mg tablet See Rx Instructions PO .COMPLEX 09/10/23 pain #60 tabs albuterol sulfate 90 mcg/actuation 2 puff inhalation Q4-6H PRN 09/28/23 aerosol inhaler (ProAir HFA) shortness of breath or wheezing #8.5 grams cefuroxime axetil 500 mg tablet 500 mg PO BID 7 days #14 tabs 09/28/23 codeine 10 mg-guaifenesin 100 mg/5 10 ml PO Q6H PRN cough #237 mL 09/28/23 mL oral liquid prednisone 20 mg tablet 40 mg (2 x 20 mg) PO DAILY #10 tabs 09/28/23 Allergies Allergy/AdvReac Type Severity Reaction Status Date / Time fluconazole [From DIFLUCAN] Allergy Severe ANGIOEDEMA Verified 09/28/23 17:07 acetaminophen [Fioricet] Allergy Unknown Unknown Verified 09/28/23 17:07 butalbital [Fioricet] Allergy Unknown Unknown Verified 09/28/23 17:07 caffeine [Fioricet] Allergy Unknown Unknown Verified 09/28/23 17:07 ciprofloxacin [Cipro] Allergy Unknown Unknown Verified 09/28/23 17:07 sulfamethoxazole Allergy Unknown Unknown Verified 09/28/23 17:07 Review of Systems Review of Systems: Yes all other systems are reviewed and are negative PMFSH Past Medical History Onset Date is defined in the Problem List Problems that require an onset date and time if occurred within 24 hrs of arrival to the ED Aortic Dissection and Rupture; Neurologic impairment; Cardiopulmonary Arrest; Endotracheal Intubation; Insertion or Replacement of Mechanical Circulatory Assist Device Medical History Hx of psoriasis Fall Hyperparathyroidism Urinary frequency Vitamin D deficiency Osteoporosis Colon cancer screening Numbness of left hand Constipation Hypercholesteremia Irritable bladder Lumbar pain Other specified hypothyroidism Age related osteoporosis Surgical History History of esophagogastroduodenoscopy (EGD) (~2001) Hx of colonoscopy History of nasal surgery Hx of breast reduction, elective History of appendectomy History of hysterectomy Family History Family History Father Myocardial infarction History of open heart surgery Cardiac defibrillator in place Mother CVD (cardiovascular disease) Thyroid disease Heart problem Paternal Grandmother Breast cancer Sister Lupus Social History Social History Household Members: Family Household Members Other:: sister Housing: House Alcohol intake: current Alcohol intake frequency: holidays/special occasions only Patient Tobacco Use Status: Never used Tobacco e-Cigarette/Vaping Use: Never Used Advance Directives: No Advance Directives Information Provided: No service: No Current occupational status: employed Current occupation: [employer] Sexual orientation: Straight/Heterosexual Gender identity: Female Cognitive needs: No Hearing needs: No Vision needs: Yes Physical Exam Vital Signs: Vital Signs: Last Vital Signs Temp 96.7 F L 09/28/23 17:03 Pulse 97 09/28/23 17:03 Resp 18 09/28/23 17:03 BP 136/82 09/28/23 17:03 Pulse Ox 98 09/28/23 17:03 O2 Del Method Room Air 09/28/23 17:03 BMI result Body Mass Index 25.8 Appearance: Alert. Oriented X3. No acute distress. ENT: Pharynx normal. Oral Mucosa moist clear rhinorrhea Neck: Normal inspection. Neck supple. CVS: Normal heart rate and rhythm. Pulses normal. Respiratory: No respiratory distress. Equal air entry bilateral, prolonged expiration no wheezing or rales Abdomen: Soft and nontender. Bowel sounds are present, no mass palpable, Skin: Skin warm and dry. Normal skin color. Normal skin turgor. Extremities: No lower extremity edema. No calf tenderness Neuro: Oriented X 3. Medical Decision Making Medical Decision Making [facility] Narrative: Patient has acute bronchitis discharge patient home inhaler prednisone antibiotic and cough syrup chest x-ray Neck COVID RSV flu negative Lab Data [facility] Lab Attestation statement: I reviewed the patient's lab results. Labs: Lab Results 09/28/23 Range/Units 18:01 Influenza Type A (PCR) NEGATIVE (Negative) Influenza Type B (PCR) NEGATIVE (Negative) RSV RNA Qual (PCR) NEGATIVE (Negative) SARS-CoV-2 RNA (RT-PCR) NEGATIVE (Negative) S. pyogenes GrpA VIKTOR Negative (Negative) Independent Interpretation I performed an independent interpretation of an: Plain X-Ray Radiology Impression Discussion of test interpretation with radiology: I have reviewed the radiologist's reading. Discharge Plan Discharge Clinical Impression: Bronchitis Patient Disposition: Home, Self-Care Instructions: Acute Bronchitis (ED) Additional Instructions: Take medication as prescribed Follow with PCP if not better Prescriptions: New prednisone 20 mg tablet 40 mg PO DAILY Qty: 10 0RF codeine-guaifenesin 10-100 mg/5 mL liquid 10 ml PO Q6H PRN (Reason: cough) Qty: 237 0RF cefuroxime axetil 500 mg tablet 500 mg PO BID 7 Days Qty: 14 0RF albuterol sulfate [ProAir HFA] 90 mcg/actuation HFA aerosol inhaler 2 puff inhalation Q4-6H PRN (Reason: shortness of breath or wheezing) Qty: 8.5 0RF No Action fluticasone propionate [Allergy Relief (fluticasone)] 50 mcg/actuation spray,suspension 1 spray intranasal DAILY 90 Days Qty: 3 0RF Rx Instructions: administer into each nostril bupropion HCl [Wellbutrin SR] 150 mg tablet sustained-release 12 hr 150 mg PO QAM 90 Days Qty: 90 0RF simvastatin 40 mg tablet 40 mg PO BEDTIME 90 Days Qty: 90 1RF levothyroxine [Euthyrox] 25 mcg tablet 25 mcg PO DAILY 90 Days Qty: 90 1RF Otezla 30 mg tablet 30 mg PO BID cetirizine [Zyrtec] 10 mg tablet 10 mg PO DAILY cholecalciferol (vitamin D3) 50 mcg (2,000 unit) capsule 50 mcg PO DAILY vitamin B complex [B-Complex] Tablet 1 tab PO DAILY [place]-3 Fish Oil 300-1,000 mg capsule 1 cap PO DAILY mometasone 0.1 % cream 0 appl topical [id number]-[id number]-cbyo-copper-raúl [Citracal-D3 Maximum Plus] 325 mg-12.5 mcg -2.75 mg tablet 1 tab PO BID 30 Days Qty: 60 11RF solifenacin [Vesicare] 10 mg tablet 10 mg PO DAILY Qty: 90 0RF naproxen 500 mg tablet See Rx Instructions PO .COMPLEX Qty: 60 0RF Rx Instructions: Take 1 tab twice daily for 2 weeks then 1 tab daily for 2 weeks then take 1 tab once daily as needed for joint pain
[2023-09-28] MEDS: Albuterol Sulfate 90 MCG 8 GM INHALER 2 PUFF INHALE (19:58)
[2023-09-28 20:01] VITALS: PULSE 90; RESP 18; O2SAT 99
[2023-09-28] MEDS: cefuroxime axetiL 500 MG TABLET PO (20:30)
[2023-09-28] MEDS: dexAMETHasone 2 MG TABLET 10 MG PO (20:30)
[2023-09-28] MEDS: guaiFEN/Codeine SF 200/20/10ML 10 ML LIQUID PO (20:30)
== END 2023-09-28 20:41 | disposition home or self-care (01) ==
PROVIDERS: Physician Assistant Medical; Emergency Provider Internal Medicine; PCP Internal Medicine
DX: J40 Bronchitis, not specified as acute or chronic (principal); R07.89 Other chest pain; R05.9 Cough, unspecified; Z79.899 Other long term (current) drug therapy; Z20.822 Contact with and (suspected) exposure to COVID-19; Z20.828 Contact with and (suspected) exposure to other viral communicable diseases
CPT/HCPCS: 0241U; 71046; 87651; 93005; 94640; 99284; J8540

== ENCOUNTER → 2023-09-28 16:22 | Outpatient (BNV) | payer OTHER, SELFPAY | PROVIDERS: Emergency Provider Internal Medicine; PCP Internal Medicine; Visit Provider Internal Medicine Cardiovascular Disease | DX: R07.9 Chest pain, unspecified (principal) | CPT/HCPCS: 93010 ==

== ENCOUNTER 2023-10-22 09:59 | Outpatient (REF) | payer OTHER, SELFPAY ==
--- NOTE | ~2023-10-22 | MM_ITS ---
EXAMINATION: MM SCREENING DIGITAL BREAST TOMOSYNTHESIS, BILATERAL CLINICAL INFORMATION: Screening. Asymptomatic. COMPARISON: Mammography: This study is compared with prior exams dating back to TECHNIQUE: Digital breast tomosynthesis is performed in both the craniocaudal and mediolateral oblique views along with computer-aided detection (CAD). Synthesized 2D images are generated from the tomosynthesis. FINDINGS: The breasts are heterogeneously dense, which may obscure small masses (ACR BI-RADS breast composition Category c). There are no significant masses, abnormal calcifications, or other abnormalities. MM/MM tomosynthesis screening BI IMPRESSION: No mammographic evidence of malignancy. ASSESSMENT: BI-RADS BI-RADS 1 - Negative RECOMMENDATION: Routine annual mammography screening. 1 year F/U This examination should not preclude the clinical evaluation of a suspicious palpable abnormality. This patient's information was entered into a reminder system with a target due date for their next mammogram.
== END 2023-10-22 10:00 | disposition home or self-care (01) ==
LOC: HO.MAMMO 09:59
PROVIDERS: PCP Internal Medicine; Visit Provider Internal Medicine
DX: Z12.31 Encounter for screening mammogram for malignant neoplasm of breast (principal)
CPT/HCPCS: 77063; 77067

== ENCOUNTER → 2023-10-22 10:15 | Outpatient (BNV) | payer OTHER, SELFPAY | PROVIDERS: PCP Internal Medicine; Visit Provider Radiology Diagnostic Radiology | DX: Z12.31 Encounter for screening mammogram for malignant neoplasm of breast (principal) | CPT/HCPCS: 77063; 77067 ==

== ENCOUNTER 2024-03-23 08:08 | Outpatient (REF) | payer OTHER, SELFPAY ==
[2024-03-23 10:08] LABS: MANUAL DIFF FLAG NO
[2024-03-23 10:17] LABS: Basophils Percent Auto 0.6 % (0-2); Eosinophils Absolute Auto 0.1 X10*3/uL (0.0-0.4); Hematocrit 41.2 % (37.0-47.0); Hemoglobin 13.5 g/dl (12.0-16.0); Imm Gran Abs Auto 0.02 X10*3/uL (0.00-0.03); Imm Gran Pct Auto 0.3 % (0.0-0.4); Lymphocytes Absolute Auto 2.9 X10*3/uL (1.2-4.9); Lymphocytes Percent Auto 41.1 % (20-40); Mean Corpuscular HGB Conc 32.8 g/dl (31.0-35.0); Mean Corpuscular Volume 88.6 fL (80.0-98.0); Mean Platelet Volume 10.3 fL (9.4-12.3); Monocytes Absolute Auto 0.4 X10*3/uL (0.1-1.2); Monocytes Percent Auto 5.6 % (2-11); Neutrophils Absolute Auto 3.6 x10*3/uL (2.0-8.3); Neutrophils Percent Auto 50.4 % (45-73); Platelet Count 289 X10*3/uL (160-400); Red Blood Count 4.65 X10*6/uL (4.20-5.50); Red Cell Distribution Width 13.6 % (11.0-16.0); White Blood Count 7.1 X10*3/uL (4.8-10.8)
[2024-03-23 10:41] LABS: Alanine Aminotransferase 23 U/L (0-31); Albumin Level 4.5 g/dL (3.5-5.0); Alkaline Phosphatase 79 U/L (39-117); Anion Gap 12 (12-20); Aspartate Amino Transferase 20 U/L (5-31); Bilirubin Total 0.4 mg/dL (0.0-1.0); Blood Urea Nitrogen 25 mg/dL (9-16); Calcium 10.2 mg/dL (8.4-10.2); Carbon Dioxide 26 mmol/L (22-29); Chloride 105 mmol/L (96-108); Cholesterol 268 mg/dL (<200); Estimated Glomerular Filt Rate > 60; Glucose Fasting 94 mg/dL (60-99); HDL Cholesterol 67 mg/dL (>40); LDL Cholesterol Calculated 166 mg/dL (<100); Sodium 139 mmol/L (135-145); Total Protein 7.6 g/dL (6.5-8.0); Triglycerides 177 mg/dL (<150)
[2024-03-23 10:57] LABS: TSH reflex Free T4 3.38 uIU/mL (0.32-4.0)
[2024-03-23 11:07] LABS: Parathyroid Hormone Intact 41.7 pg/mL (8.7-77.1)
[2024-03-28 15:38] LABS: Vitamin D 25-OH, D2 <4 ng/mL; Vitamin D 25-OH, D3 33 ng/mL; Vitamin D 25-OH, Total 33 ng/mL (30-100)
== END 2024-03-23 08:09 | disposition home or self-care (01) ==
LOC: HO.HMGCLDS 08:08
PROVIDERS: Internal Medicine Endocrinology, Diabetes & Metabolism; PCP Internal Medicine; Visit Provider Internal Medicine
DX: E78.9 Disorder of lipoprotein metabolism, unspecified (principal); E55.9 Vitamin D deficiency, unspecified; M81.0 Age-related osteoporosis without current pathological fracture; E03.8 Other specified hypothyroidism; E21.3 Hyperparathyroidism, unspecified
CPT/HCPCS: 36415; 80053; 80061; 82306; 83970; 84443; 85025

== ENCOUNTER 2024-03-29 13:55 | Outpatient (AMB) | payer OTHER, SELFPAY ==
[2024-03-29 14:01] VITALS: BP 136/82; PULSE 82; O2SAT 98; BMI 26.2
--- NOTE | 2024-03-29 14:01 | A.OFFPC_ITS ---
Vital Signs 03/29/24 14:01 Height 5 ft 6 in Weight 162 lb 2 oz BMI 26.2 BP 136/82 Blood Pressure Location Lt brachial Position Sitting Pulse 82 Pulse Source Pulse Oximeter Pulse Oximetry (%) 98 Oxygen Delivery Method Room Air Intake Visit Reasons: PE Allergies fluconazole [From DIFLUCAN] Allergy (Severe, Verified 03/29/24 14:04) ANGIOEDEMA acetaminophen [Fioricet] Allergy (Unknown, Verified 03/29/24 14:04) Unknown butalbital [Fioricet] Allergy (Unknown, Verified 03/29/24 14:04) Unknown caffeine [Fioricet] Allergy (Unknown, Verified 03/29/24 14:04) Unknown ciprofloxacin [Cipro] Allergy (Unknown, Verified 03/29/24 14:04) Unknown sulfamethoxazole Allergy (Unknown, Verified 03/29/24 14:04) Unknown Medication List - Last Reconciled 03/29/24 by Coco Hoover MD albuterol sulfate 90 mcg/actuation (Ventolin HFA) 2 puffs inhalation Q4-6H PRN apremilast (Otezla) 30 mg PO BID bupropion HCl SR (Wellbutrin SR) 150 mg PO QAM 90 days [id number]-copper-raúl 325 mg-12.5 mcg -2.75 mg (Citracal-D3 Maximum Plus) 1 tab PO BID 30 days cetirizine (Zyrtec) 10 mg PO DAILY cholecalciferol (vitamin D3) 50 mcg PO DAILY fluticasone propionate 50 mcg/actuation (Allergy Relief (fluticasone)) 1 spray intranasal DAILY 90 days levothyroxine (Euthyrox) 25 mcg PO DAILY 90 days mometasone 0.1% 0 appl topical ybqvg-[id number]-mte-epa-fish oil 300-1,000 mg ([place]-3 Fish Oil) 1 cap PO DAILY simvastatin 40 mg PO BEDTIME 90 days solifenacin (Vesicare) 10 mg PO DAILY vitamin B complex (B-Complex tablet) 1 tab PO DAILY Tobacco use date assessed: 03/29/24 Dental Screening Dental Screen Date: 03/29/24 Did you have a dental visit in the last 12 months?: Yes Did you have a dental problem in the last 6 months where you did not have access to dental care?: No Was dental information given to patient?: Patient has dentist HPI PE HPI Details Patient is a 58-year-old female came in today for physical examination Mammogram was October this year Gynecological care through [facility] Colonoscopy was August of 2020 next 1 be in 20 30 [place] medications from PCP office are Wellbutrin for depression And simvastatin for lipid control Along with allergy medication Flonase Patient is established with endocrinology [facility] Medical History Hx of psoriasis Fall Hyperparathyroidism Urinary frequency Vitamin D deficiency Osteoporosis Colon cancer screening Numbness of left hand Constipation Hypercholesteremia Irritable bladder Lumbar pain Other specified hypothyroidism Age related osteoporosis Surgical History History of esophagogastroduodenoscopy (EGD) (~2001) Hx of colonoscopy History of nasal surgery Hx of breast reduction, elective History of appendectomy History of hysterectomy Family History Father Myocardial infarction History of open heart surgery Cardiac defibrillator in place Mother CVD (cardiovascular disease) Thyroid disease Heart problem Paternal Grandmother Breast cancer Sister Lupus Social History Household Members: Family Household Members Other:: sister Housing: House Alcohol intake: current Alcohol intake frequency: holidays/special occasions only Patient Tobacco Use Status: Never used Tobacco e-Cigarette/Vaping Use: Never Used service: No Current occupational status: employed Current occupation: [employer] Sexual orientation: Straight/Heterosexual Gender identity: Female Cognitive needs: No Hearing needs: No Vision needs: Yes Questionnaire PHQ-9 Over the last 2 weeks, how often have you been bothered by any of the following problems? 1. Little interest or pleasure in doing things: not at all 2. Feeling down, depressed, or hopeless: not at all 3. Trouble falling or staying asleep, or sleeping too much: not at all 4. Feeling tired or having little energy: not at all 5. Poor appetite or overeating: nearly every day 6. Feeling bad about yourself - or that you are a failure or have let yourself or your family down: not at all 7. Trouble concentrating on things, such as reading the newspaper or watching television: more than half the days 8. Moving or speaking so slowly that other people could have noticed. Or the opposite - being so fidgety or restless that you have been moving around a lot more than usual: not at all 9. Thoughts that you would be better off or of hurting yourself in some way: not at all Total score: 5 Depression Screening Interpretation: Negative Depression Screening Done: Yes 98980 - PHQ-9 Billing: Yes Source: Developed by Drs. Braulio Gray, Amarilis Morales, Endy Atkinson and colleagues, with an educational beckie from [employer]. Thrive Questionnaire Date Thrive assessed: 03/29/24 I am a: Patient What is your living situation today?: I have a steady place to live Within the past 12 months, did the food you bought not last and you didn't have the money to get more?: Never true Within the past 12 months, did you worry whether your food would run out before you got money to buy more?: Never true Do you have trouble paying for medicines?: No Do you have trouble getting transportation to medical appointments?: No Do you have trouble paying your heating and electricity bill?: No Do you have trouble taking care of your child, family member or friend?: No Do you have trouble with day-to-day activities such as bathing, preparing meals, shopping, managing finances, etc.?: No Are you currently unemployed and looking for a job?: No Are you interested in more education?: No Please select the resources that you would like help with: None Currently or been in a relationship where the following occur: No concerns reported THRIVE Score: 0 AUDIT C Alcohol Use Questionnaire (AUDIT-C) 1. How often do you have a drink containing alcohol?: Never 3. How often do you have six or more drinks on one occasion?: Never Total Score: 0 Score Reviewed/Action Taken: Yes RYAN-7 AMB Questionnaire RYAN-7 Date RYAN - 7 assessed: 03/29/24 Feeling nervous, anxious, or on edge: 1 = Several days Not being able to stop or control worryin = Several days Worrying too much about different things: 1 = Several days Trouble relaxin = Several days Being so restless that it is hard to sit still: 1 = Several days Becoming easily annoyed or irritable: 1 = Several days Feeling afraid as if something awful might happen: 0 = Not at all Total RYAN-7 score (0-4 normal; 5-9 mild; 10-14 moderate; 15-21 severe): 6 Source: Developed by Drs. Braulio Gray, Amarilis Morales, Endy Atkinson and colleagues, with an educational beckie from [employer]. RYAN-7 Assessment Billing RYAN-7 Assessment Tool: RYAN-7 Assessment 30311 Review of Systems Const Denies chills, Denies fever(s) and Denies headache(s) Eyes Denies blurry vision ENT Denies headache(s), Denies nasal discharge, Denies nasal obstruction, Denies odynophagia and Denies sinus pain Card Denies chest pain at rest and Denies chest pain with activity Resp Denies cough and Denies hemoptysis GI Denies diarrhea, Denies odynophagia, Denies vomiting and Denies hematemesis Reports as per HPI Musc Denies abnormal gait Skin/Breast Reports as per HPI Neuro Denies Neuro-related abnormal movements, Denies Abnormal speech present, Denies abnormal gait, Denies headache(s) and Denies Sensory deficit (Neuro) Psych Denies mood swings and Denies paranoia Endo Reports as per HPI Wenceslao/Lymph Reports as per HPI Aller/Immun Reports as per HPI Physical exam (Primary Care) Vital Signs: Last Vital Signs Pulse 82 03/29/24 14:01 BP 136/82 03/29/24 14:01 Pulse Ox 98 03/29/24 14:01 Oxygen Delivery Method Room Air 03/29/24 14:01 BMI result Body Mass Index 26.2 Tobacco/Smoking Status: Tobacco use Status Tobacco use date assessed 03/29/24 03/29/24 14:06 Patient Tobacco Use Status Never used Tobacco 03/29/24 14:06 e-Cigarette/Vaping Use Never Used 03/29/24 14:06 PHQ-9: PHQ-9 Score PHQ-9: Total score 5 03/29/24 14:06 Depression Screening Interpretation: Negative Thrive Assessment: Date of Thrive Assessment Date Thrive assessed 03/29/24 03/29/24 14:06 Currently or been in a relationship where the following occur: No concerns reported Const General: cooperative, comfortable and no acute distress Orientation/consciousness: patient oriented x3 HENMT Head: Yes normocephalic and Yes atraumatic Eyes General: appearance normal, both eyes and all related structures Pupils: Equal, round and reactive pupils present EOM: EOMs intact bilaterally Neck Neck: Yes supple and No lymphadenopathy Thyroid: Thyroid normal Lymphatic: no lymphadenopathy noted Resp Effort & Inspection: normal respiratory effort and able to speak in complete sentences Auscultation: clear to auscultation bilaterally Cardio Heart sounds: S1 normal heart sound present and S2 normal heart sound present GI Palpation (GI): Soft to palpation and nontender Auscultation: normal bowel sounds General: Yes no CVA tenderness Back/Spine/Pelvis Back: no CVA tenderness Skin General skin exam: elasticity normal and turgor normal Neuro General: patient oriented x3 and gait normal Cranial nerves: Yes Equal, round and reactive pupils present Speech: No Abnormal speech present Sensory Exam: No Sensory deficit (Neuro) Coordination: tandem gait normal and Romberg test negative Extrem General: Yes normal exam except as noted and No edema Assessment and Plan Assessment & Plan (1) Encounter for general adult medical examination with abnormal findings: Code(s): Z00.01 - Encounter for general adult medical examination with abnormal findings (2) Breast screening: Code(s): Z12.39 - Encounter for other screening for malignant neoplasm of breast (3) Major depression, recurrent: Code(s): F33.9 - Major depressive disorder, recurrent, unspecified Qualifiers: Active/Remission status: in partial remission Qualified Code(s): F33.41 - Major depressive disorder, recurrent, in partial remission (4) Lipid disorder: Code(s): E78.9 - Disorder of lipoprotein metabolism, unspecified (5) Age related osteoporosis: Code(s): M81.0 - Age-related osteoporosis without current pathological fracture Qualifiers: Presence of current pathological fracture: without current pathological fracture Qualified Code(s): M81.0 - Age-related osteoporosis without current pathological fracture (6) Other specified hypothyroidism: Code(s): E03.8 - Other specified hypothyroidism Plan Patient is a 58-year-old female came in today for physical examination Mammogram was October of this year Gynecological care through [facility] Colonoscopy was August of 2020 next 1 be in 20 30 [place] medications from PCP office are Wellbutrin for depression And simvastatin for lipid control , labs done recently reviewed, LDL continued to be 166, we are increasing the dose to 80 mg of simvastatin Along with allergy medication Anai Patient is established with endocrinology [facility] Follow-up 3 months labs to be done before visit Physical exam 1 year Orders: Orders Lipid Panel 2 Months E03.8 - Other specified hypothyroidism, E78.9 - Disorder of lipoprotein metabolism, unspecified TSH reflex Free T4 2 Months E03.8 - Other specified hypothyroidism, E78.9 - D isorder of lipoprotein metabolism, unspecified Complete Blood Count Auto Diff 2 Months E03.8 - Other specified hypothyroidism, E78.9 - Disorder of lipoprotein metabolism, unspecified Comprehensive Benson. Panel Fast 2 Months E03.8 - Other specified hypothyroidism, E78.9 - Disorder of lipoprotein metabolism, unspecified Medications: Changed From simvastatin 40 mg PO BEDTIME 90 days 90 tabs 0RF To simvastatin 80 mg PO BEDTIME 90 days 90 tabs 0RF Coding Level of Care Code Est Pt Prev Care 40-64y(38927) Diagnoses Encounter for general adult medical examination with abnormal findings Z00.01 Breast screening Z12.39 Recurrent major depressive disorder, in partial remission F33.41 Active/Remission status: in partial remission Lipid disorder E78.9 Age-related osteoporosis without current pathological fracture M81.0 Presence of current pathological fracture: without current pathological fracture Other specified hypothyroidism E03.8 Additional Codes RYAN-7 Assessment Billing - RYAN-7 Assessment Tool: RYAN-7 Assessment [id number] ([id number])
== END 2024-03-29 14:25 | disposition home or self-care (01) ==
PROVIDERS: PCP Internal Medicine; Visit Provider Internal Medicine
DX: Z00.00 Encounter for general adult medical examination without abnormal findings (principal); Z12.39 Encounter for other screening for malignant neoplasm of breast; F33.41 Major depressive disorder, recurrent, in partial remission; E78.9 Disorder of lipoprotein metabolism, unspecified; M81.0 Age-related osteoporosis without current pathological fracture; E03.8 Other specified hypothyroidism
CPT/HCPCS: 99396